=== PATIENT | female | born 1970 | race Caucasian/White ===

== ENCOUNTER → 2017-12-01 | Outpatient (CLI) | payer MEDICARE, MEDICAID ==
[~2017-12-01] MED LIST: ALPR1T PO; ARIP15TA PO; ASPI-84 PO; ATEN25TA PO; CITA-105 PO; CPR250T PO; FERR325C PO; FLAX1CAP2 PO; FOLI0.8T PO; HYDR-707 PO; HYDR25CA5 PO; LISI20TA PO; LOVA40TA2 PO; MECL50TA PO; METF-141 PO; SITA1TAB6 PO; THIO50TA PO; TRAZ150T42 PO; TRIA1CAP4 PO; VENL150C PO; ZYDIS PO
--- NOTE | 2017-12-02 11:59 | Diagnostic Imaging Report ---
PROCEDURE: Digital mammogram. INDICATION: Bilateral screening. COMPARISON: The study was compared to prior exams of 12/09/2015 and 10/10/2014. At this time there are no current complaints. The current study was also evaluated with a Computer Aided Detection (CAD) system. FINDINGS: There are scattered fibroglandular densities in both breasts which could obscure a lesion. Overall, there does not appear to have been any significant change when compared to the prior exam. No primary or secondary sign of malignancy is noted. IMPRESSION: There is no radiographic evidence for malignancy. ACR BI-RADS Category 1: Negative. Result letter will be mailed to the patient. Note: At least 10% of breast cancer is not imaged by mammography. Dictated on workstation # [id number]
== END ==
LOC: RAD 09:52
PROVIDERS: ATTEND Nurse Practitioner Community Health
DX: Z12.31 Encounter for screening mammogram for malignant neoplasm of breast (principal)
CPT/HCPCS: 77067

== ENCOUNTER → 2019-01-02 | Outpatient (CLI) | payer MEDICARE, MEDICAID ==
--- NOTE | 2019-01-02 14:02 | Diagnostic Imaging Report ---
INDICATION: Screening. COMPARISON: 12/01/2017 and 12/09/2015. TECHNIQUE: 2D and 3D bilateral screening mammography was performed with CAD. FINDINGS: Both breasts remain heterogeneously dense, limiting the sensitivity of mammography. No mass or malignant appearing microcalcifications are seen. There are benign calcifications bilaterally. The axillae are unremarkable. IMPRESSION: No mammographic features suspicious for malignancy are identified. ACR BI-RADS Category 2: Benign findings. Result letter will be mailed to the patient. Note: At least 10% of breast cancer is not imaged by mammography. Dictated by: Dictated on workstation # [id number]
== END ==
LOC: RAD 08:22
PROVIDERS: ATTEND Nurse Practitioner Community Health
DX: Z12.31 Encounter for screening mammogram for malignant neoplasm of breast (principal)
CPT/HCPCS: 77067

== ENCOUNTER → 2020-07-17 | Outpatient (CLI) | payer MEDICAID, MEDICARE ==
--- NOTE | 2020-07-17 16:34 | Diagnostic Imaging Report ---
INDICATION: Routine screening. COMPARISON is made with prior mammograms from 01/02/2019 and 12/09/2015. 2-D and 3-D bilateral screening mammography was performed with CAD. Scattered fibroglandular densities are identified bilaterally. There are benign calcifications in both breasts. No mass or malignant appearing microcalcifications are seen. Axillae are unremarkable. IMPRESSION: BI-RADS Category 2 No mammographic features suspicious for malignancy are identified. Dictated by: Dictated on workstation # [id number]
== END ==
LOC: RAD 10:45
PROVIDERS: ATTEND Nurse Practitioner Community Health
DX: Z12.31 Encounter for screening mammogram for malignant neoplasm of breast (principal)
CPT/HCPCS: 77063; 77067

== ENCOUNTER 2020-10-17 15:52 | Emergency (ER) | payer MEDICARE, MEDICAID ==
[~2020-10-17] VITALS: Ht 170 cm; Wt 107.0 kg
--- NOTE | 2020-10-17 16:06 | ED Lower Extremity ---
General Chief Complaint: Lower Extremity Stated Complaint: R LEG PAIN Source: patient Exam Limitations: no limitations History of Present Illness Date Seen by Provider: Oct 17, 2020 Time Seen by Provider: 16:06 Initial Comments To ER with right leg pain that extends from the hip all the way down to the feet. Is worsened by movement. At rest the pain is minimal. No fevers or chills no known injury. Pain is been present for 1 month. She states the only area that is not painful is her knee. When she moves her foot she has pain in the hayes. When she moves her knee she has pain in the thigh. Onset: other Severity: moderate Pain/Injury Location: right leg Method of Injury: unknown Modifying Factors: Worse With Movement Allergies and Home Medications Allergies Coded Allergies: No Known Drug Allergies (Unverified , 04/24/10) Home Medications Aripiprazole 15 Mg Tab, 20 MG PO DAILY, (Reported) Aspirin 81 Mg Tablet.dr, 1 PO DAILY, (Reported) Atenolol 25 Mg Tablet, 1 PO BID, (Reported) Ferrous Sulfate 325 ( 65 )Mg Capsule.sa, 1 PO DAILY, (Reported) Lisinopril 20 Mg Tablet, 1 PO DAILY, (Reported) Lovastatin 40 Mg Tablet, 40 MG PO DAILY, (Reported) Metformin Hcl 500 Mg Tab.sr.24h, 1 PO BID, (Reported) Trazodone Hcl 150 Mg Tablet, 300 MG PO DAILY, (Reported) Venlafaxine Hcl 150 Mg Cap.sr.24h, 150 MG PO DAILY, (Reported) [Zydis] , 5 MG PO NEEDED, (Reported) Patient Home Medication List Home Medication List Reviewed: Yes Review of Systems Constitutional: see HPI; No chills, No fever EENTM: see HPI Respiratory: no symptoms reported Cardiovascular: no symptoms reported Genitourinary: no symptoms reported Musculoskeletal: see HPI; No back pain Skin: no symptoms reported Psychiatric/Neurological: No Symptoms Reported Past Bajbjbu-Erycqv-Twjiya Hx Immunizations Up To Date Date of Pneumonia Vaccine: Apr 29, 2009 Date of Influenza Vaccine: Apr 29, 2012 Physical Exam Vital Signs Vital Signs - First Documented 10/17/20 16:00 Temp 36.2 Pulse 79 Resp 16 B/P (MAP) 159/113 (128) Pulse Ox 99 O2 Delivery Room Air Capillary Refill : Height, Weight, BMI Height: '" Weight: lbs. oz. kg; BMI Method:Stated General Appearance: WD/WN, no apparent distress Neck: non-tender, full range of motion Respiratory: no respiratory distress, no accessory muscle use Hips: bilateral hip non-tender, bilateral hip normal inspection, bilateral hip normal range of motion Legs: bilateral leg non-tender, bilateral leg normal inspection, bilateral leg normal range of motion Knees: bilateral knee non-tender, bilateral knee normal inspection, bilateral knee normal range of motion Ankles: bilateral ankle non-tender, bilateral ankle normal inspection, bilateral ankle normal range of motion Feet: bilateral foot non-tender, bilateral foot normal inspection, bilateral foot normal range of motion Neurologic/Psychiatric: alert, normal mood/affect, oriented x 3 Skin: normal color, warm/dry Progress/Results/Core Measures Results/Orders Lab Results Laboratory Tests Test 10/17/20 16:32 Range/Units White Blood Count 8.0 4.3-11.0 10^3/uL Red Blood Count 4.43 3.80-5.11 10^6/uL Hemoglobin 11.7 11.5-16.0 g/dL Hematocrit 36 35-52 % Mean Corpuscular Volume 80 80-99 fL Mean Corpuscular Hemoglobin 26 25-34 pg Mean Corpuscular Hemoglobin Concent 33 32-36 g/dL Red Cell Distribution Width 14.4 10.0-14.5 % Platelet Count 375 130-400 10^3/uL Mean Platelet Volume 9.9 9.0-12.2 fL Immature Granulocyte % (Auto) 0 % Neutrophils (%) (Auto) 57 42-75 % Lymphocytes (%) (Auto) 32 12-44 % Monocytes (%) (Auto) 9 0-12 % Eosinophils (%) (Auto) 1 0-10 % Basophils (%) (Auto) 1 0-10 % Neutrophils # (Auto) 4.5 1.8-7.8 10^3/uL Lymphocytes # (Auto) 2.6 1.0-4.0 10^3/uL Monocytes # (Auto) 0.7 0.0-1.0 10^3/uL Eosinophils # (Auto) 0.1 0.0-0.3 10^3/uL Basophils # (Auto) 0.1 0.0-0.1 10^3/uL Immature Granulocyte # (Auto) 0.0 0.0-0.1 10^3/uL Sodium Level 127 L 135-145 MMOL/L Potassium Level 4.3 3.6-5.0 MMOL/L Chloride Level 95 L 98-107 MMOL/L Carbon Dioxide Level 23 21-32 MMOL/L Anion Gap 9 5-14 MMOL/L Glucose Level 113 H 70-105 MG/DL Calcium Level 8.6 8.5-10.1 MG/DL My Orders Orders - VAUGHN KEMP APRN Cbc With Automated Diff (10/17/20 16:00) Hs C Reactive Protein (10/17/20 16:00) Basic Metabolic Panel (10/17/20 16:00) Us Venous Lower Ext Rt (10/17/20 16:00) Femur, Right, 2 Views (10/17/20 16:07) Tibia/Fibula, Right, 2 Views (10/17/20 16:38) Hydrocodone/Apap 5/325 Tablet (Lortab 5 (10/17/20 17:00) Vital Signs/I&O 10/17/20 16:00 Temp 36.2 Pulse 79 Resp 16 B/P (MAP) 159/113 (128) Pulse Ox 99 O2 Delivery Room Air Diagnostic Imaging Diagonstic Imaging: Xray Comments NAME: KANDY MENDEZ [facility] REC#: [id number] PT STATUS: REG ER : 1970 PHYSICIAN: VAUGHN KEMP APRN ADMIT DATE: 10/17/20/ER Signed Date of Exam:10/17/20 US VENOUS LOWER EXT RT INDICATION: Right leg pain. Right leg venous Doppler study was performed in the routine fashion with color flow Doppler and waveform analysis. FINDINGS: The right common femoral vein, superficial femoral vein, popliteal vein and visualized portion of the tibial veins show normal compressibility and venous flow patterns. There is normal augmentation. IMPRESSION: No evidence of deep vein thrombosis of the major veins of the right leg. Dictated by: Dictated on workstation # [id number] Dict: 10/17/20 1634 Trans: 10/17/20 1634 RS [id number] Interpreted by: ANGIE LAO MD Electronically signed by: ANGIE LAO MD 10/17/20 1634 Departure Communication (Admissions) She has a history of gastric bypass so NSAIDs or steroids would be ill advised. She will need follow-up with primary care, she states that she sees [facility]. I discussed with her the need to obtain further evaluation which may include MRI of the lumbar spine or hip. Impression Primary Impression: Nonspecific right leg pain Disposition: HOME, SELF-CARE Condition: Stable Departure-Patient Inst. Decision time for Depature: 17:04 Referrals: [facility] (PCP) Primary Care Physician RALPH RIZO (Family) Primary Care Physician Patient Instructions: NO INSTRUCTIONS GIVEN Add. Discharge Instructions: 1. Call [facility] to follow-up as soon as they can see you. Pain medication as directed. Return to ER for any worsening. All discharge instructions reviewed with patient and/or family. Voiced understanding. Scripts Hydrocodone/Acetaminophen (Hydrocodone-Acetamin 5-325 mg) 1 Each Tablet 1 TAB PO Q4H PRN for PAIN-MODERATE (5-7), #10 TAB Prov: VAUGHN KEMP APRN 10/17/20 VAUGHN KEMP APRN Oct 17, 2020 16:06
--- NOTE | 2020-10-17 16:36 | Diagnostic Imaging Report ---
INDICATION: Right leg pain. Right leg venous Doppler study was performed in the routine fashion with color flow Doppler and waveform analysis. FINDINGS: The right common femoral vein, superficial femoral vein, popliteal vein and visualized portion of the tibial veins show normal compressibility and venous flow patterns. There is normal augmentation. IMPRESSION: No evidence of deep vein thrombosis of the major veins of the right leg. Dictated by: Dictated on workstation # [id number]
[2020-10-17 16:43] LABS: BASOPHILS # (AUTO) 0.1 10^3/uL (0.0-0.1); BASOPHILS % (AUTO) 1 % (0-10); EOSINOPHILS # (AUTO) 0.1 10^3/uL (0.0-0.3); EOSINOPHILS % (AUTO) 1 % (0-10); HEMATOCRIT 36 % (35-52); HEMOGLOBIN 11.7 g/dL (11.5-16.0); LYMPHOCYTES # (AUTO) 2.6 10^3/uL (1.0-4.0); LYMPHOCYTES % (AUTO) 32 % (12-44); MEAN CORPUSCULAR HEMOGLOBIN 26 pg (25-34); MEAN CORPUSCULAR HGB CONC 33 g/dL (32-36); MEAN CORPUSCULAR VOLUME 80 fL (80-99); MEAN PLATELET VOLUME 9.9 fL (9.0-12.2); MONOCYTES # (AUTO) 0.7 10^3/uL (0.0-1.0); MONOCYTES % (AUTO) 9 % (0-12); NEUTROPHILS # (AUTO) 4.5 10^3/uL (1.8-7.8); NEUTROPHILS % (AUTO) 57 % (42-75); PLATELET COUNT 375 10^3/uL (130-400)
[2020-10-17 16:55] LABS: CHLORIDE 95 MMOL/L (98-107); POTASSIUM 4.3 MMOL/L (3.6-5.0); SODIUM 127 MMOL/L (135-145)
[2020-10-17 16:57] LABS: CALCIUM 8.6 MG/DL (8.5-10.1); GLUCOSE 113 MG/DL (70-105)
[2020-10-17 16:59] LABS: CARBON DIOXIDE 23 MMOL/L (21-32)
[2020-10-17] MEDS ORDERED: HYDROcodone/APAP 5 MG/325 MG (LORTAB) TAB PO ONE (17:00)
[2020-10-17 17:01] LABS: CREATININE SERUM 0.79 MG/DL (0.60-1.30); GFR ESTIMATED > 60
--- NOTE | 2020-10-17 17:01 | Diagnostic Imaging Report ---
FEMUR, RIGHT, 2 VIEWS Technique: 2 views of right femur Indication: Right thigh pain Comparison: None available. Findings: No fracture concerning focal osseous lesion. No periosteal reaction. Mild to moderate degenerative arthritis in the knee. No knee joint effusion. Impression: No acute osseous normality in the right femur. Dictated by: Dictated on workstation # [id number]
--- NOTE | 2020-10-17 17:01 | Diagnostic Imaging Report ---
INDICATION: Pain. EXAMINATION: Tibia and fibula. FINDINGS: There are arthritic changes to the knee and ankle. No fracture or dislocation, however. IMPRESSION: No acute appearing abnormality. Dictated on workstation # [id number]
[2020-10-17 17:02] LABS: BUN/CREATININE RATIO 9
[2020-10-17] MEDS ORDERED: ACHD5005 PO (17:06)
[2020-10-17 17:11] VITALS: BP 152/85
== END 2020-10-17 17:11 | disposition home or self-care (01) ==
LOC: EDUNIT# 15:52 → ER 15:53
DX: M79.651 Pain in right thigh (principal); Z79.82 Long term (current) use of aspirin
CPT/HCPCS: 36415; 73552; 73590; 80048; 85025; 86141

== ENCOUNTER → 2021-01-01 | Outpatient (CLI) | payer MEDICARE, MEDICAID ==
[~2021-01-01] MED LIST changes: +ACHD5005 PO
--- NOTE | 2021-01-01 19:39 | Diagnostic Imaging Report ---
PROCEDURE: MRI lumbar spine. TECHNIQUE: Multiplanar, multisequence MRI of the lumbar spine was performed without contrast. DATE: January 01, 2021. COMPARISON: None. INDICATION: 50-year-old female, chronic low back pain. Right hip pain. FINDINGS: The alignment of the lumbar spine is unremarkable. There is no evidence of a diffuse marrow replacing or infiltrating process. There is no focal concerning bone lesion. There is no compression deformity. There is mild Modic endplate degenerative related changes adjacent to the L3-L4 disc space. The disc heights are fairly well preserved. The visualized cord and conus medullaris is unremarkable and terminates at the L1 level. There is a subcentimeter T2 hyperintense right renal lesion too small to characterize. L1-L2: There is no disc bulge. The facet joints and ligamentum flavum are unremarkable. There is no foraminal narrowing. There is no spinal canal stenosis. L2-L3: There is no disc bulge. The facet joints and ligamentum flavum are unremarkable. There is no foraminal narrowing. There is no spinal canal stenosis. L3-L4: There is no disc bulge. The facet joints and ligamentum flavum are unremarkable. There is no foraminal narrowing. There is no spinal canal stenosis. L4-L5: There is no disc bulge. There are mild bilateral facet degenerative changes without ligamentum flavum hypertrophy. There is no foraminal narrowing. There is no spinal canal stenosis. L5-S1: There is no disc bulge. The facet joints and ligamentum flavum are unremarkable. There is no foraminal narrowing. There is no spinal canal stenosis. IMPRESSION: Very mild disc and facet degenerative changes of the lumbar spine without foraminal or spinal stenosis. Dictated by: Dictated on workstation # [id number]
--- NOTE | 2021-01-01 20:00 | Diagnostic Imaging Report ---
EXAMINATION: Magnetic resonance imaging of the pelvis and right hip without contrast DATE: January 01, 2021. COMPARISON: Right femur radiographs October 17, 2020. INDICATION: 50-year-old female, chronic low back and right hip pain. TECHNIQUE: Magnetic Resonance Imaging sequences were performed of the pelvis and right hip without contrast. TENDONS AND MUSCLES: The gluteus radha muscles and their origins and insertions are intact bilaterally. The gluteus minimus and medius tendons are intact. There is abnormal edema in the very lower aspect of the right gluteus medius muscle. Both common hamstring attachments on the ischial tuberosities are intact and the extensor muscles of the thigh are intact. The visualized portions of the flexors and adductor muscles of the thigh and their attachments on the pelvis and hips are intact. Both iliopsoas and iliacus muscles are intact. The bilateral iliopsoas tendons are intact. HIPS AND SACROILIAC JOINTS: The contours of the femoral heads and acetabuli are smooth and symmetric. There is no fluid-filled labral tear or paralabral cyst. The hip joint spaces appear well-preserved. There is no hip joint effusion. The sacroiliac joints are unremarkable. LUMBAR SPINE: There is moderate to severe disc height loss at L5-S1. There is mild disc height loss at L3-L4. There is otherwise limited assessment of the lumbar spine. BONE: The bones all have normal configuration. The bone marrow signal is within normal limits. Specifically, negative for fracture, osteomyelitis, osteonecrosis or marrow replacing process. BURSAE AND SOFT TISSUES: The bursae and soft tissues surrounding the pelvis and hips are within normal limits. IMPRESSION: 1. Edema in the lower aspect of the right gluteus medius muscle most likely relating to a low-grade muscle strain or contusion. 2. Additional intramuscular signal is unremarkable. 3. Intact tendons. 4. Unremarkable appearance of the hip joints. 5. No acute fracture, bone contusion or evidence of osteonecrosis. 6. Degenerative changes of the lower lumbar spine. Dictated by: Dictated on workstation # [id number]
== END ==
LOC: RAD 14:45
PROVIDERS: ATTEND Nurse Practitioner Family
DX: M51.36 Other intervertebral disc degeneration, lumbar region (principal); M47.816 Spondylosis without myelopathy or radiculopathy, lumbar region
CPT/HCPCS: 72148; 73721

== ENCOUNTER → 2021-08-12 | Outpatient (CLI) | payer MEDICARE, MEDICAID ==
--- NOTE | 2021-08-12 13:16 | Diagnostic Imaging Report ---
TECHNIQUE: Live grayscale ultrasound was performed of the posterior soft tissues of the neck. REASON FOR EXAM: Lump in the posterior neck. COMPARISON: None. FINDINGS: No evidence of mass or fluid collection is seen in the area of palpable lump. Normal muscle tissue is noted in this area. IMPRESSION: No sonographic abnormalities in the area of palpable lump in the posterior neck. No focal mass or fluid collection. If indicated, further evaluation with CT neck with contrast may be considered.. Dictated by: Dictated on workstation # [id number]
--- NOTE | 2021-08-12 14:04 | Diagnostic Imaging Report ---
Indication: Routine screening Comparison is made prior mammogram from 07/17/2020 and 01/02/2019. 2-D and 3-D bilateral screening mammography was performed with CAD. Scattered fibroglandular densities are identified bilaterally. Scattered benign calcifications are noted bilaterally. No mass or malignant-appearing microcalcifications are seen. Axillae are unremarkable. IMPRESSION: BI-RADS Category 2 No mammographic features suspicious for malignancy are identified. ACR BI-RADS Category 2: Benign findings. Result letter will be mailed to the patient. Note: At least 10% of breast cancer is not imaged by mammography. Dictated by: Dictated on workstation # [id number]
== END ==
LOC: RAD 11:30
PROVIDERS: ATTEND Nurse Practitioner Family
DX: Z12.31 Encounter for screening mammogram for malignant neoplasm of breast (principal); R22.1 Localized swelling, mass and lump, neck
CPT/HCPCS: 76536; 77063; 77067

== ENCOUNTER → 2021-09-08 | Outpatient (CLI) | payer MEDICARE, MEDICAID ==
[~2021-09-08] MED LIST changes: +CATHETER FLUSH 10 ML SYR IV PRN; +HOLD METFORMIN - RECEIVED CONTRAST 20 ML VIAL IV SCH; +IOHEXOL 350 MG/ML 100 ML (OMNIPAQUE 350) VIAL IV ONE; +NS 100 ML (IVPB) BAG IV ONE
[2021-09-08 10:22] LABS: ALBUMIN 3.9 GM/DL (3.2-4.5); BILIRUBIN,TOTAL 0.4 MG/DL (0.1-1.0); CALCIUM 9.2 MG/DL (8.5-10.1); CREATININE SERUM 0.86 MG/DL (0.60-1.30); POTASSIUM 4.2 MMOL/L (3.6-5.0); TOTAL PROTEIN 6.7 GM/DL (6.4-8.2)
--- NOTE | 2021-09-08 11:04 | Diagnostic Imaging Report ---
PROCEDURE: CT neck soft tissue with contrast. TECHNIQUE: Multiple contiguous axial images were obtained through the neck after the administration of contrast. Auto Exposure Controls were utilized during the CT exam to meet ALARA standards for radiation dose reduction. INDICATION: Mass in the posterior neck. COMPARISON: None. Findings: The posterior nasopharynx and oropharynx demonstrate appropriate symmetry. There is no displacement of the parapharyngeal fat planes. There is no abnormal process evident within the prevertebral or retropharyngeal space. There is no evidence of abnormal thickening of the epiglottis or aryepiglottic folds. The vocal folds appear symmetric. The parotid and submandibular glands are unremarkable. Nodule seen in the right lobe of thyroid measuring 0.5 cm. Scattered nonenlarged lymph nodes are seen in the neck. A lymph node is seen in the soft tissues overlying the left suboccipital region measuring 0.4 cm. No focal inflammatory changes are demonstrated. No soft tissue mass or fluid collection demonstrated. The vascular structures the neck demonstrate no evidence of high-grade stenosis on this nondedicated exam. The visualized lung apices are clear. The visualized intracranial contents demonstrate no evidence of pathologic intracranial enhancement or intracranial mass effect. Visualized orbital contents are unremarkable. The visualized paranasal sinuses are clear. The mastoids and middle ears are clear. No acute osseous abnormality in the cervical spine. Impression: 1. No focal soft tissue mass or fluid collection is seen in the neck. 2. Scattered lymph nodes are seen in the neck which do not meet significance based on size criteria. A lymph node is seen in the left suboccipital region measuring 0.4 cm in short axis which may relate to the history of palpable abnormality in the posterior neck. 3. No mass or fluid collection in the aerodigestive tract. No evidence of airway compromise. Dictated by: Dictated on workstation # [id number]
== END ==
LOC: RAD 10:15
PROVIDERS: ATTEND Nurse Practitioner Family
DX: R22.1 Localized swelling, mass and lump, neck (principal)
CPT/HCPCS: 36415; 70491; 80053

== ENCOUNTER 2022-06-30 05:34 | Outpatient (CLI) | payer MEDICARE, MEDICAID ==
[~2022-06-30] VITALS: Ht 170.2 cm; Wt 103.0 kg
[~2022-06-30 05:34] MED LIST changes: -CATHETER FLUSH 10 ML SYR IV PRN; -HOLD METFORMIN - RECEIVED CONTRAST 20 ML VIAL IV SCH; -IOHEXOL 350 MG/ML 100 ML (OMNIPAQUE 350) VIAL IV ONE; -NS 100 ML (IVPB) BAG IV ONE
[2022-07-07] MEDS ORDERED: MODA200T39 PO (09:06)
[2022-07-07] MEDS ORDERED: DULO60CA59 PO (09:06)
[2022-07-07] MEDS ORDERED: OLN5T PO (09:06)
[2022-07-07] MEDS ORDERED: NF-VITD400 PO (09:06)
[2022-07-07] MEDS ORDERED: BUSP30TA2 PO (09:06)
[2022-07-07] MEDS ORDERED: PROP10TA8 PO (09:06)
[2022-07-07] MEDS ORDERED: PANT40TA52 PO (09:06)
[2022-07-07] MEDS ORDERED: BACI1TAB3 PO (09:06)
[2022-07-07] MEDS ORDERED: CALC600T91 PO (09:06)
[2022-07-07] MEDS ORDERED: SIMV10TA26 PO (09:06)
[2022-07-07] MEDS ORDERED: GABA-490 PO (09:06)
[2022-07-07] MEDS ORDERED: DULA3PEN SQ (09:06)
[2022-07-07] MEDS ORDERED: LISI10TA25 PO (09:06)
[2022-07-07] MEDS ORDERED: MULT-593 PO (09:06)
== END 2022-07-07 09:09 | disposition home or self-care (01) ==
LOC: PREOP 05:34
PROVIDERS: ATTEND Surgery
DX: Z01.818 Encounter for other preprocedural examination (principal)

== ENCOUNTER 2022-07-13 08:57 | Day surgery (SDC) | payer MEDICARE, MEDICAID ==
[~2022-07-13] VITALS: Ht 170 cm; Wt 103.0 kg
[~2022-07-13 08:57] MED LIST changes: +BACI1TAB3 PO; +BUSP30TA2 PO; +CALC600T91 PO; +DULA3PEN SQ; +DULO60CA59 PO; +GABA-490 PO; +LISI10TA25 PO; +MODA200T39 PO; +MULT-593 PO; +NF-VITD400 PO; +OLN5T PO; +PANT40TA52 PO; +PROP10TA8 PO; +SIMV10TA26 PO
[2022-07-13] MEDS ORDERED: LACTATED RINGERS 1,000 ML IV STA (09:01)
[2022-07-13] MEDS ORDERED: LACTATED RINGERS 1,000 ML IV ONE (09:14)
[2022-07-13] MEDS ORDERED: HURRICAINE EXT TUBE (BENZOCAINE) XX PRN (09:15)
[2022-07-13] MEDS ORDERED: HURRICAINE EXT TUBE (BENZOCAINE) ONE (09:15)
[2022-07-13 09:20] VITALS: BP 128/83
[2022-07-13] MEDS ORDERED: MIDAZOLAM 2 MG/2 ML (VERSED) VIAL ONE (10:16)
[2022-07-13] MEDS ORDERED: PROPOFOL INJECTION 50 ML IV ONE (10:16)
[2022-07-13] MEDS ORDERED: proPOfol 200 MG/20 ML (DIPRIVAN) VIAL IV ONE (10:48)
[2022-07-13 11:00] VITALS: BP 133/83
--- NOTE | 2022-07-13 11:01 | Discharge Inst-Simple/Standard ---
Discharge Inst-Standard Patient Instructions/Follow Up Plan of Care/Instructions/FU: Follow up in [address] Izaguirre Activity as Tolerated: Yes Discharge Diet: No Restrictions, Regular Diet, Other Diet (high fiber) ARLEEN IZAGUIRRE DO Jul 13, 2022 11:01
[2022-07-13 11:05] VITALS: BP 139/84
[2022-07-13 11:25] VITALS: BP 145/95
--- NOTE | 2022-07-13 11:34 | Anesthesia-General Post-Op ---
MAC Patient Condition Mental Status/LOC: Same as Preop Cardiovascular: Satisfactory Nausea/Vomiting: Absent Respiratory: Satisfactory Pain: Controlled Complications: Absent Post Op Complications Complications None Follow Up Care/Instructions Patient Instructions None needed. Anesthesiology Discharge Order Discharge Order Patient is doing well, no complaints, stable vital signs, no apparent adverse anesthesia problems. No complications reported per nursing. LETYT OWENS CRNA Jul 13, 2022 11:33
[2022-07-13 11:43] VITALS: BP 145/95
--- NOTE | 2022-07-13 17:26 | OPERATIVE REPORT ---
DATE OF SERVICE: 07/13/2022 PREOPERATIVE DIAGNOSES: GERD, positive Cologuard. POSTOPERATIVE DIAGNOSES: Gastrojejunal anastomosis inflammation, small hiatal hernia, diverticulosis. PROCEDURE: Esophagogastrojejunoscopy with biopsies, colonoscopy. SURGEON: Dr. Izaguirre. ANESTHESIA: Per [employer]BR[employer] DIGITIZER. ESTIMATED BLOOD LOSS: None. COMPLICATIONS: None. INDICATIONS: The patient is a 51-year-old female with positive Cologuard and GERD symptoms. She understands risks and benefits of procedure and wishes to proceed. Consent was signed in the chart. DESCRIPTION OF PROCEDURE: The patient was taken to the endoscopy suite, placed in the left lateral recumbent position. Timeout was performed. Scope was inserted in the mouth, down the stomach into the stomach and into the jejunum without any difficulty. No polyps, mass or ulceration of the jejunum. At the jejunal gastroanastomosis, there is some inflammation, biopsy of this area was obtained. Scope was then used to inspect the gastric pouch. No other abnormalities found except for a small hiatal hernia. Scope was then slowly retracted back to the distal esophagus. Biopsy of GE junction was obtained. No polyps, masses or ulcerations. Scope was slowly retracted back until completely removed. Digital rectal exam was performed. No palpable polyps, masses or ulcerations. Scope was inserted into the rectum, advanced all the way to the cecum with minimal difficulty. Prep was adequate. Scope was then slowly retracted back. No polyps, mass or ulceration in the cecum, ascending, transverse, descending and sigmoid colon. A minimal amount of diverticulosis was present throughout colon. Once in the rectum, scope was retroflexed, noting no other pathology. Except for some slight hemorrhoidal disease. Scope was returned to its normal position, slowly withdrawn until completely removed. The patient tolerated the procedure well without any complications. She was taken to recovery room in stable condition. RECOMMENDATIONS: The patient will need a repeat colonoscopy in five years. Any issues before that be seen at that time. PLAN: The patient will follow up in two weeks to discuss pathology results. Job ID: [id number] DocumentID: [id number] Dictated Date: 07/13/2022 10:59:41 Back Winder Date: 07/13/2022 17:24:00 Dictated By: ARLEEN IZAGUIRRE DO
== END 2022-07-13 11:43 | disposition home or self-care (01) ==
LOC: ENDO 08:57
PROVIDERS: ATTEND Surgery
DX: K57.30 Diverticulosis of large intestine without perforation or abscess without bleeding (principal); K44.9 Diaphragmatic hernia without obstruction or gangrene; K64.9 Unspecified hemorrhoids; K21.9 Gastro-esophageal reflux disease without esophagitis; K91.89 Other postprocedural complications and disorders of digestive system; Y83.2 Surgical operation with anastomosis, bypass or graft as the cause of abnormal reaction of the patient, or of later complication, without mention of misadventure at the time of the procedure
CPT/HCPCS: 88305

== ENCOUNTER → 2023-02-01 | Outpatient (CLI) | payer MEDICARE, MEDICAID ==
[~2023-02-01] MED LIST changes: +GADOTERATE 0.5 MMOL/ML (CLARISCAN) 20 ML VIAL IV ONE
--- NOTE | 2023-02-01 15:39 | Diagnostic Imaging Report ---
PROCEDURE: MR imaging of the brain with and without contrast. TECHNIQUE: Multiplanar, multisequence MR imaging of the brain was performed with and without contrast. INDICATION: Headaches with dizziness. Paresthesias COMPARISON: None FINDINGS: The ventricles and the cortical sulci are age appropriate. There is no midline shift or mass effect identified. There is no acute infarction. No intraparenchymal or extra-axial hemorrhage or fluid collection is identified. No other focal parenchymal abnormality is seen. There is no abnormal enhancement seen after the administration of gadolinium. No focal mass is present. The midline craniocervical anatomy is unremarkable. The major expected intracranial flow voids are seen. There are no focal calvarial lesions. Visualized paranasal sinuses are clear. The mastoid air cells are unremarkable. IMPRESSION: 1. No acute intracranial abnormalities. No acute infarction, hemorrhage or focal intra-axial mass. Dictated by: Dictated on workstation # [id number]
== END ==
LOC: RAD 12:50
PROVIDERS: ATTEND Nurse Practitioner Family
DX: G44.52 New daily persistent headache (NDPH) (principal); R42 Dizziness and giddiness; R29.6 Repeated falls; R20.2 Paresthesia of skin
CPT/HCPCS: 70553

== ENCOUNTER 2023-06-09 15:45 | Observation (INO) | payer MEDICARE, MEDICAID ==
[~2023-06-09] VITALS: Ht 170.1 cm; Wt 110.8 kg
[~2023-06-09 15:45] MED LIST changes: -GABA-490 PO; +GABA-491 PO; -GADOTERATE 0.5 MMOL/ML (CLARISCAN) 20 ML VIAL IV ONE
[2023-06-09] MEDS ORDERED: amLODIPine 10 MG TABLET PO ONE (16:00)
[2023-06-09] MEDS ORDERED: cloNIDine 0.1 MG TABLET PO ONE (16:00)
[2023-06-09 16:14] LABS: BASOPHILS # (AUTO) 0.1 10^3/uL (0.0-0.1); BASOPHILS % (AUTO) 1 % (0-10); EOSINOPHILS # (AUTO) 0.1 10^3/uL (0.0-0.3); EOSINOPHILS % (AUTO) 1 % (0-10); HEMATOCRIT 42 % (35-52); LYMPHOCYTES # (AUTO) 3.6 10^3/uL (1.0-4.0); LYMPHOCYTES % (AUTO) 31 % (12-44); MEAN CORPUSCULAR HEMOGLOBIN 28 pg (25-34); MEAN CORPUSCULAR HGB CONC 33 g/dL (32-36); MEAN CORPUSCULAR VOLUME 85 fL (80-99); MEAN PLATELET VOLUME 10.2 fL (9.0-12.2); MONOCYTES # (AUTO) 1.2 10^3/uL (0.0-1.0); MONOCYTES % (AUTO) 10 % (0-12); NEUTROPHILS # (AUTO) 6.5 10^3/uL (1.8-7.8); NEUTROPHILS % (AUTO) 56 % (42-75); PLATELET COUNT 362 10^3/uL (130-400); WHITE BLOOD COUNT 11.5 10^3/uL (4.3-11.0)
[2023-06-09 16:17] LABS: ALBUMIN 4.4 GM/DL (3.2-4.5); CHLORIDE 94 MMOL/L (98-107); POTASSIUM 3.9 MMOL/L (3.6-5.0)
[2023-06-09 16:18] LABS: SODIUM 127 MMOL/L (135-145)
[2023-06-09 16:19] LABS: CALCIUM 9.4 MG/DL (8.5-10.1)
[2023-06-09 16:20] LABS: GLUCOSE 126 MG/DL (70-105); TOTAL PROTEIN 7.7 GM/DL (6.4-8.2)
[2023-06-09 16:21] LABS: CARBON DIOXIDE 20 MMOL/L (21-32)
[2023-06-09 16:22] LABS: BILIRUBIN,TOTAL 0.7 MG/DL (0.1-1.0)
[2023-06-09 16:23] LABS: ALKALINE PHOSPHATASE 114 U/L (40-136); CREATININE SERUM 0.81 MG/DL (0.60-1.30); GFR ESTIMATED 86
[2023-06-09 16:24] LABS: BUN/CREATININE RATIO 7
[2023-06-09 16:26] LABS: ALANINE AMINOTRANSFERASE 21 U/L (0-55)
--- NOTE | 2023-06-09 16:31 | ED General ---
General Chief Complaint: Cardiac/General Problems Stated Complaint: HIGH BP, HEADACHE Nursing Triage Note: PT AMBULATE TO ROOM 05 WITHOUT DIFFICULTY WITH C/O "BLOOD PRESSURE ISSUES". PT STATES PCP DOUBLED HER HYPERTENSION MEDICATION LAST WEEK. PT REPORTS BEING SEEN AT [facility] TODAY. PT REPORTS PCP TOLD PT TO COME TO ED. PT REPORTS HEADACHE. Source of Information: Patient Exam Limitations: No Limitations History of Present Illness Date Seen by Provider: Jun 09, 2023 Time Seen by Provider: 15:58 Initial Comments Here with report of blood pressure 195/112 mental health. She apparently had similar readings twice. She has had uncontrolled blood pressure without chest pain or breathing problems. She does report headache. She apparently was seen by Dr. ZHOU recently and had her losartan doubled. That was due to uncontrolled hypertension at the time as well. Does have family history of hypertension and cardiac disease. Denies fever or chills. Reports taking medications as directed. Timing/Duration: Getting Worse, Other (3 weeks) Severity: Moderate Associated Systoms: No Chest Pain, No Diaphoresis; Headaches; No N ausea/Vomiting, No Shortness of Air, No Weakness Allergies and Home Medications Allergies Coded Allergies: NSAIDS (Non-Steroidal Anti-Inflamma (Verified Allergy, Unknown, 06/09/23) Patient Home Medication List Home Medication List Reviewed: Yes Bacillus Coagulans (Probiotic) 250 Million Cell Tab.chew, 1 EACH PO DAILY, (Reported) Entered as Reported by: LUCILLE HANEY on 07/07/22905 Buspirone HCl (Buspirone HCl) 30 Mg Tablet, 30 MG PO BID, (Reported) Entered as Reported by: LUCILLE HANEY on 07/07/22905 Calcium Carbonate (Calcium) 600 Mg Calcium (1500 Mg) Tablet, 600 MG PO DAILY, (Reported) Entered as Reported by: LUCILLE HANEY on 07/07/22905 Dulaglutide (Trulicity) 3 Mg/0.5 Ml Pen.injctr, 3 MG SQ WEEK, (Reported) Entered as Reported by: LUCILLE HANEY on 07/07/22905 Duloxetine HCl (Duloxetine HCl) 60 Mg Capsule.dr, 60 MG PO DAILY, (Reported) Entered as Reported by: LUCILLE HANEY on 07/07/22905 Ferrous Sulfate (Iron) 325 ( 65 )Mg Capsule.sa, 1 PO DAILY, (Reported) Entered as Reported by: FRANKIE MENDEZ on 11/20/10 1448 Gabapentin (Gabapentin) 400 Mg Capsule, 300 MG PO TID, (Reported) Entered as Reported by: LUCILLE HANEY on 07/07/22905 Lisinopril (Lisinopril) 10 Mg Tablet, 10 MG PO DAILY, (Reported) Entered as Reported by: LUCILLE HANEY on 07/07/22905 Modafinil (Modafinil) 200 Mg Tablet, 300 MG PO DAILY, (Reported) Entered as Reported by: LUCILLE HANEY on 07/07/22905 Multivitamin with Minerals (Multiple Vitamin) 1 Each Tablet, 1 EACH PO DAILY, (Reported) Entered as Reported by: LUCILLE HANEY on 07/07/22905 Olanzapine (Olanzapine) 5 Mg Tablet, 5 MG PO BID, (Reported) Entered as Reported by: LUCILLE HANEY on 07/07/22905 Pantoprazole Sodium (Pantoprazole Sodium) 40 Mg Tablet.dr, 40 MG PO DAILY, (Reported) Entered as Reported by: LUCILLE HANEY on 07/07/22905 Propranolol HCl (Propranolol HCl) 10 Mg Tablet, 10 MG PO TID, (Reported) Entered as Reported by: LUCILLE HANEY on 07/07/22905 Simvastatin (Simvastatin) 10 Mg Tablet, 10 MG PO DAILY, (Reported) Entered as Reported by: LUCILLE HANEY on 07/07/22905 Vitamin D (Vitamin D3) 10 Mcg (400 Unit) Tablet, 400 MCG PO DAILY, (Reported) Entered as Reported by: LUCILLE HANEY on 07/07/22905 Review of Systems Review of Systems Constitutional: see HPI; No chills, No fever EENTM: no symptoms reported Respiratory: No cough, No short of breath Cardiovascular: No chest pain, No edema Gastrointestinal: No nausea, No vomiting Genitourinary: no symptoms reported Musculoskeletal: no symptoms reported Skin: no symptoms reported Past Xzwugtd-Dcsptc-Mqvzwl Hx Patient Social History Tobacco Use?: No Smoking Status: Never a Smoker Smokeless Tobacco Frequency: Never a User Use of E-Cig and/or Vaping dev: No Use of E-Cig and/or Vaping Crispin: Never a User Substance use?: No Alcohol Use?: No Pt feels they are or have been: No Immunizations Up To Date First/Initial COVID19 Vaccinat: YES Second COVID19 Vaccination Ranyd: YES Third COVID19 Vaccination Date: YES Seasonal Allergies Seasonal Allergies: No Past Medical History Surgeries: Yes (GASTRIC BYPASS) Section Respiratory: Yes Sleep Apnea Currently Using CPAP: Yes Cardiac: Yes Hypertension Neurological: No Genitourinary: No Gastrointestinal: No Musculoskeletal: No Endocrine: Yes Diabetes, Non-Insulin dep HEENT: No Cancer: No Psychosocial: No Integumentary: No Family Medical History Reviewed Nursing Family Hx Heart Disease, Hypertension Physical Exam Vital Signs Vital Signs - First Documented 06/09/23 06/09/23 15:53 19:35 Temp 36.2 Pulse 74 Resp 20 B/P (MAP) 212/112 (145) Pulse Ox 98 O2 Delivery Room Air Capillary Refill : Less Than 3 Seconds Height, Weight, BMI Height: '" Weight: lbs. oz. kg; 39.00 BMI Method:Stated General Appearance: No Apparent Distress, WD/WN, Obese HEENT: PERRL/EOMI, Pharynx Normal Neck: Non Tender, Supple Respiratory: Lungs Clear, Normal Breath Sounds Cardiovascular: Regular Rate, Rhythm, No Murmur Gastrointestinal: Non Tender, Soft Extremity: Normal Range of Motion, Non Tender Neurologic/Psychiatric: Alert, Oriented x3 Skin: Normal Color, Warm/Dry Progress/Results/Core Measures Suspected Sepsis SIRS Temperature: Pulse: 74 Respiratory Rate: 20 Laboratory Tests 06/09/23 15:56: White Blood Count 11.5H Blood Pressure 212 /112 Mean: 145 Laboratory Tests 06/09/23 15:56: Creatinine 0.81, Platelet Count 362, Total Bilirubin 0.7 Results/Orders Lab Results Laboratory Tests Test 06/09/23 15:56 Range/Units White Blood Count 11.5 H 4.3-11.0 10^3/uL Red Blood Count 4.94 3.80-5.11 10^6/uL Hemoglobin 14.0 11.5-16.0 g/dL Hematocrit 42 35-52 % Mean Corpuscular Volume 85 80-99 fL Mean Corpuscular Hemoglobin 28 25-34 pg Mean Corpuscular Hemoglobin Concent 33 32-36 g/dL Red Cell Distribution Width 13.9 10.0-14.5 % Platelet Count 362 130-400 10^3/uL Mean Platelet Volume 10.2 9.0-12.2 fL Immature Granulocyte % (Auto) 0 % Neutrophils (%) (Auto) 56 42-75 % Lymphocytes (%) (Auto) 31 12-44 % Monocytes (%) (Auto) 10 0-12 % Eosinophils (%) (Auto) 1 0-10 % Basophils (%) (Auto) 1 0-10 % Neutrophils # (Auto) 6.5 1.8-7.8 10^3/uL Lymphocytes # (Auto) 3.6 1.0-4.0 10^3/uL Monocytes # (Auto) 1.2 H 0.0-1.0 10^3/uL Eosinophils # (Auto) 0.1 0.0-0.3 10^3/uL Basophils # (Auto) 0.1 0.0-0.1 10^3/uL Immature Granulocyte # (Auto) 0.0 0.0-0.1 10^3/uL Sodium Level 127 L 135-145 MMOL/L Potassium Level 3.9 3.6-5.0 MMOL/L Chloride Level 94 L 98-107 MMOL/L Carbon Dioxide Level 20 L 21-32 MMOL/L Anion Gap 13 5-14 MMOL/L Blood Urea Nitrogen 6 L 7-18 MG/DL Creatinine 0.81 0.60-1.30 MG/DL Estimat Glomerular Filtration Rate 86 BUN/Creatinine Ratio 7 Glucose Level 126 H 70-105 MG/DL Calcium Level 9.4 8.5-10.1 MG/DL Corrected Calcium 9.1 8.5-10.1 MG/DL Total Bilirubin 0.7 0.1-1.0 MG/DL Aspartate Amino Transf (AST/SGOT) 24 5-34 U/L Alanine Aminotransferase (ALT/SGPT) 21 0-55 U/L Alkaline Phosphatase 114 40-136 U/L Troponin I < 0.028 <0.028 NG/ML Total Protein 7.7 6.4-8.2 GM/DL Albumin 4.4 3.2-4.5 GM/DL My Orders Orders - SHIRA GUPTA MD Cbc And Automated Diff (06/09/23 15:59) Comprehensive Metabolic Panel (06/09/23 15:59) Troponin I Shaan (06/09/23 15:59) Ekg Tracing (06/09/23 15:59) Clonidine Tablet (Clonidine Tablet) (06/09/23 16:00) Amlodipine Tablet (Amlodipine Tablet) (06/09/23 16:00) Ns Iv 500 Ml (Ns Iv 500 Ml) (06/09/23 17:00) Hydralazine Injection (Hydralazine Injec (06/09/23 17:00) Ns (Ivpb) 250 Ml (S... W/Nicardipine Inj (06/09/23 18:15) Code/Resuscitation (06/09/23 18:03) Ed Admission (Communication) (06/09/23 18:03) Chest 1 View, Ap/Pa Only (06/09/23 18:11) Medications Given in ED Vital Signs/I&O 06/09/23 06/09/23 06/09/23 06/09/23 15:53 18:36 19:00 19:35 Temp 36.2 36.7 Pulse 74 90 100 Resp 20 16 B/P (MAP) 212/112 (145) 181/99 151/66 Pulse Ox 98 O2 Delivery Room Air Room Air 06/10/23 00:00 Intake Total 500 ml Balance 500 ml Capillary Refill : Less Than 3 Seconds Blood Pressure Mean: 145 Progress Note : Progress Note Seen and evaluated. IV, labs including CBC, CMP and troponin ordered. EKG ordered. clonidine 0.1 mg p.o. and add amlodipine 10 mg p.o. ordered. Monitor patient. Differential diagnosis includes uncontrolled hypertension, electrolyte abnormality, cardiac event 1630: I have attempted to speak with Dr. Zhou and have left message for her to return call. We we will see if her blood pressure improves with the medication dosing and we will continue this outpatient with further adjustments per PCP as needed. Monitor patient. 1730: Labs reviewed and CBC shows slight elevated white count of 11.5 with otherwise normal findings. CMP reviewed and shows sodium of 127 with chloride of 94 with normal creatinine and slightly elevated blood sugar at 126 with normal LFTs. Troponin is negative. 1800: We added hydralazine to her medication due to persistent hypertension and I did give normal saline 500 mL bolus for decreased sodium and chloride. I did discuss the case with Dr. Goff and she accepts patient for admission to the ICU, observation status and we will put her on nicardipine drip. I will call report to [facility]. 1815: Report to eICU physician by me. Being start of Cardene drip. Blood pressure currently 192/100 and heart rate 72 and patient without distress. Chest x-ray done and reviewed by me shows no obvious infiltrate on my interpretation. Patient agrees to admission. ECG Initial ECG Impression Date: Jun 09, 2023 Initial ECG Impression Time: 16:02 Initial ECG Rate: 59 Initial ECG Rhythm: S.Delfin Comment Sinus bradycardia with incomplete right bundle branch block and normal axis. No evidence of ST elevation [place]. Interpreted by me. Does have findings concerning for LVH. Departure Communication (Admissions) Time/Spoke to Admitting Phy: 18:00 Time/Spoke to Consulting Phy: 18:12 Impression Primary Impression: Malignant hypertension Disposition: ADMITTED INPATIENT Condition: Stable Admissions Decision to Admit Reason: Admit from ER (General) Decision to Admit/Date: Jun 09, 2023 Time/Decision to Admit Time: 18:00 Departure-Patient Inst. Referrals: CHARLES ZHOU DO (PCP/Family) Primary Care Physician SHIRA GUPTA MD Jun 09, 2023 16:31
[2023-06-09] MEDS ORDERED: NS IV 500 ML 500 ML IV ONE (17:00)
[2023-06-09] MEDS ORDERED: hydrALAZINE INJECTION 20 MG/ML VIAL IV ONE (17:00)
[2023-06-09] MEDS ORDERED: niCARdipine INJECTION 50 MG in NS (IVPB) 250 ML 230 ML IV SCH (18:15)
--- NOTE | 2023-06-09 18:32 | Diagnostic Imaging Report ---
INDICATION: Hypertension. FINDINGS: The heart size, mediastinal configuration, and pulmonary vascularity are within normal limits. There is no pleural effusion, pneumothorax, or pneumonia. The osseous structures are unremarkable. IMPRESSION: No acute cardiopulmonary abnormality. Dictated by: Dictated on workstation # [id number]
[2023-06-09] MEDS ORDERED: CALCIUM CARBONATE 500 MG CHEW TABLET PO PRN (20:15)
[2023-06-09] MEDS ORDERED: MELATONIN 3 MG TABLET PO PRN (20:15)
[2023-06-09] MEDS ORDERED: diphenhydrAMINE INJ 50 MG/ML VIAL IVP PRN (20:15)
[2023-06-09] MEDS ORDERED: BISACODYL 10 MG SUPPOSITORY PR PRN (20:15)
[2023-06-09] MEDS ORDERED: diphenhydrAMINE 25 MG TABLET PO PRN (20:15)
[2023-06-09] MEDS ORDERED: ACETAMINOPHEN 325 MG TABLET PO PRN (20:15)
[2023-06-09] MEDS ORDERED: MILK OF MAGNESIA 400 MG/5 ML 30 ML UDC PO PRN (20:15)
[2023-06-09] MEDS ORDERED: ANTACID SUSPENSION 30 ML UDC PO PRN (20:15)
[2023-06-09] MEDS ORDERED: ONDANSETRON INJECTION 4 MG/2 ML (SDV) IV PRN (20:15)
[2023-06-09] MEDS ORDERED: ONDANSETRON 4 MG ORAL DISSOLVE TABLET PO PRN (20:15)
[2023-06-09] MEDS ORDERED: LACTULOSE SYRUP 10GM/15ML 30ML UDC PO PRN (20:15)
[2023-06-09] MEDS ORDERED: NS IV 500 ML 500 ML IV PRN (20:15)
[2023-06-09] MEDS ORDERED: HYDROmorphone INJECTION 2 MG/ML VIAL IV PRN (20:15)
[2023-06-09 20:26] VITALS: BP 212/112
--- NOTE | 2023-06-09 20:35 | Tele-ICU Progress Note ---
Progress Note 52F with HTN referred from PCP for BP elevation despite doubling home BP Rx last week. On presentation found to be 212/112. Started on cardene gtt with goal 150- 180. - hypertensive urgency: continue cardene gtt overnight. Transition to orals in AM as tolerated. Maintain 150-180 overnight and then normalize in AM. Given abrupt worsening of BP, will check US for possible SHYLA. - metabolic acidosis, mild with CO2 20 and gap 13. No renal failure present. Has received NS 500 cc for Na 127. Will repeat BMP and get VBG at 6 hours. If acidosis not resolved, will send urine electrolytes. CCT 8 min Focused Exam Height, Weight, BMI Height: '" Weight: lbs. oz. kg; 39.46 BMI Method:Stated HAWK BLANKENSHIP MD Jun 09, 2023 20:35
[2023-06-09] MEDS: niCARdipine INJECTION 50 MG in NS (IVPB) 250 ML 230 ML IV SCH (20:52)
[2023-06-09] MEDS ORDERED: oxyCODONE IMMEDIATE RELEASE 5 MG TABLET ONE (20:53)
[2023-06-09] MEDS: oxyCODONE IMMEDIATE RELEASE 5 MG TABLET PO PRN (20:55)
[2023-06-09] MEDS: SENNOSIDES 8.6 MG TABLET PO SCH (20:56)
[2023-06-09] MEDS: DOCUSATE SODIUM 100 MG CAPSULE PO SCH (20:56)
[2023-06-09] MEDS ORDERED: ALPRAZolam 0.5 MG TABLET PO PRN (21:45)
[2023-06-09 22:21] LABS: CREATININE SERUM 0.84 MG/DL (0.60-1.30); POTASSIUM 4.1 MMOL/L (3.6-5.0)
[2023-06-10] MEDS ORDERED: NS (IVPB) 250 ML 250 ML ONE (03:29)
[2023-06-10] MEDS ORDERED: niCARdipine IV PYXIS DRIP KIT = 50 MG X 2 VIALS ONE (03:29)
[2023-06-10] MEDS: niCARdipine INJECTION 50 MG in NS (IVPB) 250 ML 230 ML IV SCH ×2 (03:39→15:56)
[2023-06-10 04:56] LABS: BASOPHILS # (AUTO) 0.1 10^3/uL (0.0-0.1); BASOPHILS % (AUTO) 0 % (0-10); EOSINOPHILS % (AUTO) 0 % (0-10); HEMATOCRIT 42 % (35-52); HEMOGLOBIN 14.4 g/dL (11.5-16.0); LYMPHOCYTES # (AUTO) 0.9 10^3/uL (1.0-4.0); LYMPHOCYTES % (AUTO) 7 % (12-44); MEAN CORPUSCULAR HEMOGLOBIN 28 pg (25-34); MEAN CORPUSCULAR HGB CONC 34 g/dL (32-36); MEAN CORPUSCULAR VOLUME 83 fL (80-99); MEAN PLATELET VOLUME 9.9 fL (9.0-12.2); MONOCYTES # (AUTO) 0.4 10^3/uL (0.0-1.0); MONOCYTES % (AUTO) 4 % (0-12); NEUTROPHILS % (AUTO) 89 % (42-75); PLATELET COUNT 309 10^3/uL (130-400); WHITE BLOOD COUNT 12.5 10^3/uL (4.3-11.0)
[2023-06-10 05:15] LABS: ALBUMIN 4.4 GM/DL (3.2-4.5); BILIRUBIN,TOTAL 0.7 MG/DL (0.1-1.0); CALCIUM 9.1 MG/DL (8.5-10.1); CREATININE SERUM 0.81 MG/DL (0.60-1.30); MAGNESIUM 1.7 MG/DL (1.6-2.4); PHOSPHORUS 3.5 MG/DL (2.3-4.7); POTASSIUM 4.1 MMOL/L (3.6-5.0); TOTAL PROTEIN 7.3 GM/DL (6.4-8.2)
[2023-06-10 05:36] LABS: NEUTROPHILS % (MANUAL) 88 %
[2023-06-10 05:37] LABS: LYMPHOCYTES % (MANUAL) 9 %; MONOCYTES % (MANUAL) 3 %; RBC MORPH NORMAL
[2023-06-10] MEDS: inSUlin ASPART 1 UNIT/0.01 ML (PER UNIT) SC SCH ×2 (05:40→11:45)
[2023-06-10] MEDS: MAGNESIUM 1 GM/100 ML IVPB 100 ML IV SCH ×2 (05:40→07:38)
[2023-06-10] MEDS ORDERED: MAGNESIUM 1 GM/100 ML IVPB 100 ML IV SCH (06:00)
[2023-06-10] MEDS ORDERED: POTASSIUM CHLORIDE 20 MEQ TABLET PO SCH (06:00)
[2023-06-10] MEDS ORDERED: POTASSIUM CL 10MEQ/50ML IVPB 50 ML IV SCH (06:00)
[2023-06-10] MEDS: oxyCODONE IMMEDIATE RELEASE 5 MG TABLET PO PRN ×2 (06:51→14:07)
[2023-06-10] MEDS ORDERED: cloNIDine 0.1 MG TABLET PO ONE (08:30)
--- NOTE | 2023-06-10 09:07 | Tele-ICU Progress Note ---
Subjective Date Seen by a Provider: Jun 10, 2023 Subjective/Events-last exam This virtual visit was conducted using real time audio/video. Thank you for asking us to see this patient for critical care services due to initial malignant hypertension, now new onset chest tightness since 4 AM and troponin elevation. No S-T elevation on EKG per RN. PE: Obese. VSS. 167/90. O2 sat 98% on RA HEENT: No obvious masses, adenopathy or JVD. Chest: clear to auscultation. CV: RRR S1 S2 No murmur or added sounds. Abd: Non-tender. Bowel sounds Y. : Unremarkable. [place] N. SANITARIAN INSPECTOR/psychiatric: Grossly intact. No obvious focal findings. Extremities: No edema. Capillary refill < 3 seconds. Skin: unremarkable. Results: Elevated Trop 0.036, BG 273, WCC 12.5. Decreased Na 129. CXR: clear. Available chart/ vitals / labs / images reviewed. Video assessment done using teleICU camera, rest of exam as per RN. A/P: Critical Care: Repeat Troponin pending. Would consider cardiology consult, possible cardiac cath. Critically ill patient. Cont. Cardene, Mag., Patria., SSI. Discussed with RN Lanette. Asked RN to reach out to eICU if any questions or c oncerns later. Time spent with patient/coordination of care with other health professionals (mins): 25 Sepsis Event Evaluation Height, Weight, BMI Height: '" Weight: lbs. oz. kg; 38.29 BMI Method:Stated Exam Exam Patient acknowledged, consented, and participated in this virtual visit which was conducted using real time audio/video Vital Signs Date Time Temp Pulse Resp B/P (MAP) Pulse Ox O2 Delivery O2 Flow Rate FiO2 06/10/23 08:39 35.5 06/10/23 08:00 114 10 164/90 (114) 98 Room Air 06/10/23 07:00 98 14 157/92 (112) 95 Room Air 06/10/23 07:00 105 06/10/23 06:00 112 26 154/98 (116) 94 Room Air 06/10/23 05:00 106 23 152/90 (110) 94 Room Air 06/10/23 04:21 167/96 06/10/23 04:00 109 21 167/96 (119) 95 06/10/23 03:40 94 Room Air 06/10/23 03:39 158/89 06/10/23 03:30 36.6 98 20 158/89 (112) 94 Room Air 06/10/23 01:00 101 25 160/88 (112) 98 Room Air 06/10/23 01:00 100 06/09/23 23:35 100 Room Air 06/09/23 23:33 161/102 06/09/23 23:30 36.4 110 18 161/102 (121) 100 Room Air 06/09/23 23:00 92 19 149/94 (112) 98 Room Air 06/09/23 22:08 139/84 06/09/23 22:00 97 20 139/84 (102) 100 Room Air 06/09/23 21:45 97 21 136/84 (101) 95 Room Air 06/09/23 21:15 94 21 145/86 (105) 95 Room Air 06/09/23 20:45 112 28 166/107 (126) 100 Room Air 06/09/23 20:34 100 Room Air 0.00 21 06/09/23 20:30 146/94 (111) 06/09/23 20:26 36.2 74 100 21 06/09/23 20:15 148/89 (108) 06/09/23 20:15 148/89 06/09/23 20:15 100 Room Air 06/09/23 19:54 37.3 103 22 165/94 (117) 100 Room Air 06/09/23 19:48 169/96 06/09/23 19:35 36.7 100 16 151/66 98 Room Air 06/09/23 19:00 90 06/09/23 18:36 181/99 06/09/23 15:53 36.2 74 20 212/112 (145) Room Air I & O 06/10/23 07:00 Intake Total 1600 ml Output Total 4550 ml Balance -2950 ml Height & Weight Height: '" Weight: lbs. oz. kg; 38.29 BMI Method:Stated General Appearance: No Apparent Distress, WD/WN, Obese HEENT: PERRL/EOMI, Pharynx Normal Neck: Non Tender, Supple Respiratory: Lungs Clear, Normal Breath Sounds Cardiovascular: Regular Rate, Rhythm, No Murmur Capillary Refill: Less Than 3 Seconds Extremity: Normal Range of Motion, Non Tender Neurologic/Psychiatric: Alert, Oriented x3 Skin: Normal Color, Warm/Dry Results Lab Laboratory Tests 06/09/23 15:56 06/09/23 21:55 06/10/23 04:46 Assessment/Plan Assessment/Plan See free text. Critical Care: Critically Ill Patient ANTHONY BORDEN MD Jun 10, 2023 09:07
[2023-06-10] MEDS: amLODIPine 5 MG TABLET PO SCH ×2 (09:17→09:18)
[2023-06-10] MEDS: DOCUSATE SODIUM 100 MG CAPSULE PO SCH (09:18)
[2023-06-10] MEDS: SENNOSIDES 8.6 MG TABLET PO SCH (09:18)
--- NOTE | 2023-06-10 10:23 | Diagnostic Imaging Report ---
PROCEDURE: US Renal/Bladder. TECHNIQUE: Multiple real-time grayscale images were obtained over the kidneys in various projections bilaterally. INDICATION: Hypertensive emergency. COMPARISON: None. FINDINGS: Right: The right kidney measures 11.4 cm in length. Renal cortical thickness and echogenicity are within normal limits. There is no evidence of calculi, solid focal mass or hydronephrosis. No perinephric fluid collections are identified. Resistive indices within the arcuate arteries on the right measure 0.56. Left: The left kidney measures 10.7 cm in length. Renal cortical thickness and echogenicity are within normal limits. There is no evidence of calculi, solid focal mass or hydronephrosis. No perinephric fluid collections are identified. Resistive indices within the arcuate arteries on the left measure 0.61. There is no abdominal ascites. The aorta and renal arteries is not visualized due to extensive bowel gas. IMPRESSION: 1. Nondiagnostic renal artery Doppler due to extensive bowel gas obscuring the aorta and bilateral renal arteries. 2. No acute renal abnormalities identified. Dictated by: Dictated on workstation # [id number]
[2023-06-10] MEDS ORDERED: CARI3CAP PO (10:46)
[2023-06-10] MEDS ORDERED: L.AC1CAP6 PO (10:46)
[2023-06-10] MEDS ORDERED: MV-M1TAB57 PO (10:46)
[2023-06-10] MEDS ORDERED: TIZA-186 PO ×2 (10:46)
[2023-06-10] MEDS ORDERED: HYDR-700 PO (10:46)
[2023-06-10] MEDS ORDERED: FERR325T24 PO (10:46)
[2023-06-10] MEDS ORDERED: LOSA50TA63 PO (10:46)
[2023-06-10] MEDS ORDERED: DULA0.75 SQ (10:46)
[2023-06-10] MEDS ORDERED: CALC-903 PO (10:46)
[2023-06-10] MEDS ORDERED: CHOL500050 PO (10:46)
--- NOTE | 2023-06-10 11:28 | Short Stay Summary ---
RAMONLIN 06/10/23 1128: History of Present Illness History of Present Illness Reason for visit/HPI 52 year old patient with hypertension presented yesterday for elevated blood pressure with headaches. Her blood pressure was found to be over 190/110. Patient reports that her PCP double her BP medication last week- however- it has not helped. She was found to have a BP of 212/112 yesterday. Patient is a [facility] patient. She has a history of hypertension, recently had an ECHO performed at [facility], and was told she had a murmur there. Patient today denies fever or chills. She is tachycardic and feels chest pain- described as someone pressing on her chest. Repeat EKG was unremarkable. Troponin slightly elevated to .036. Patient reports taking her medications regularly and not missing any. Date of Admission Jun 09, 2023 at 19:38 Date of Discharge Attending Physician Sharmaine Zhou DO Admitting Physician Admitting Physician: Nancy Worrell DO Attending Physician: Nancy Worrell DO Consult Allergies and Home Medications Allergies Coded Allergies: NSAIDS (Non-Steroidal Anti-Inflamma (Verified Allergy, Unknown, 06/09/23) Patient Home Medication List Calcium Carbonate/Vitamin D3 (Calcium 600 + Vit D3 Caplet) 600 Mg Calcium-20 Mcg (800 Unit) Tablet, 1 EACH PO 1300,2100, (Reported) Entered as Reported by: AUSTIN JARRETT on 06/10/231045 Last Action: Reviewed Cariprazine Hydrochloride (Vraylar) 3 Mg Capsule, 3 MG PO DAILY, (Reported) Entered as Reported by: AUSTIN JARRETT on 06/10/23 104 Last Action: Reviewed Cholecalciferol (Vitamin D3) (Vitamin D3) 125 Mcg (5000 Unit) Capsule, 250 MCG PO, (Reported) Entered as Reported by: AUSTIN JARRETT on 06/10/231045 Last Action: Reviewed Dulaglutide (Trulicity) 0.75 Mg/0.5 Ml Pen.injctr, 0.75 MG SQ FRI, (Reported) Entered as Reported by: AUSTIN JARRETT on 06/10/231045 Last Action: Reviewed Duloxetine HCl (Duloxetine HCl) 60 Mg Capsule.dr, 60 MG PO DAILY, (Reported) Entered as Reported by: LUCILLE HANEY on 11/9/22 0906 Last Action: Reviewed Ferrous Sulfate (Ferosul) 325 Mg (65 Mg Iron) Tablet, 325 MG PO MO,WE,FR, (Reported) Entered as Reported by: AUSTIN JARRETT on 06/10/231045 Last Action: Reviewed Hydroxyzine HCl (Hydroxyzine HCl) 25 Mg Tablet, 25 MG PO TID PRN for ANXIETY, (Reported) Entered as Reported by: AUSTIN JARRETT on 06/10/231045 Last Action: Reviewed L.acidoph & Paracasei,B.lactis (Probiotic) 10 Billion Cell Capsule, 1 EACH PO HS, (Reported) Entered as Reported by: AUSTIN JARRETT on 06/10/231045 Last Action: Reviewed Losartan Potassium (Losartan Potassium) 50 Mg Tablet, 100 MG PO DAILY, (Reported) Entered as Reported by: AUSTIN JARRETT on 06/10/231045 Last Action: Reviewed Mv-Mn/Folic Acid/Calcium/Vit K (Women's 50 Plus Multivit Tab) 400 Mcg-500 Mg Calcium-20 Mcg Tablet, 1 EACH PO DAILY, (Reported) Entered as Reported by: AUSTIN JARRETT on 06/10/231045 Last Action: Reviewed Pantoprazole Sodium (Pantoprazole Sodium) 40 Mg Tablet.dr, 40 MG PO HS, (Rep orted) Entered as Reported by: LUCILLE HANEY on 07/07/22905 Last Action: Reviewed Propranolol HCl (Propranolol HCl) 10 Mg Tablet, 20 MG PO TID PRN for TREMORS, (Reported) Entered as Reported by: LUCILLE HANEY on 07/07/22905 Last Action: Reviewed Tizanidine HCl (Tizanidine HCl) 4 Mg Tablet, 8 MG PO HS, (Reported) Entered as Reported by: AUSTIN JARRETT on 06/10/231045 Last Action: Reviewed Tizanidine HCl (Tizanidine HCl) 4 Mg Tablet, 2 MG PO 0800,1200 PRN for MUSCLE SPASMS, (Reported) Entered as Reported by: AUSTIN JARRETT on 06/10/231045 Last Action: Continued Discontinued Medications Bacillus Coagulans (Probiotic) 250 Million Cell Tab.chew, 1 EACH PO DAILY, (Reported) Discontinued Reason: No Longer Taking Entered as Reported by: LUCILLE HANEY on 07/07/22905 Last Action: Discontinued Buspirone HCl (Buspirone HCl) 30 Mg Tablet, 30 MG PO BID, (Reported) Discontinued Reason: No Longer Taking Entered as Reported by: LUCILLE HANEY on 07/07/22905 Last Action: Discontinued Calcium Carbonate (Calcium) 600 Mg Calcium (1500 Mg) Tablet, 600 MG PO DAILY, (Reported) Discontinued Reason: No Longer Taking Entered as Reported by: LUCILLE HANEY on 07/07/22905 Last Action: Discontinued Dulaglutide (Trulicity) 3 Mg/0.5 Ml Pen.injctr, 3 MG SQ WEEK, (Reported) Discontinued Reason: No Longer Taking Entered as Reported by: LUCILLE HANEY on 07/07/22905 Last Action: Discontinued Ferrous Sulfate (Iron) 325 ( 65 )Mg Capsule.sa, 1 PO DAILY, (Reported) Discontinued Reason: No Longer Taking Entered as Reported by: FRANKIE MENDEZ on 11/20/10 1448 Last Action: Discontinued Gabapentin (Gabapentin) 400 Mg Capsule, 300 MG PO TID, (Reported) Discontinued Reason: No Longer Taking Entered as Reported by: LUCILLE HANEY on 07/07/22905 Last Action: Discontinued Lisinopril (Lisinopril) 10 Mg Tablet, 10 MG PO DAILY, (Reported) Discontinued Reason: No Longer Taking Entered as Reported by: LUCILLE HANEY on 07/07/22905 Last Action: Discontinued Modafinil (Modafinil) 200 Mg Tablet, 300 MG PO DAILY, (Reported) Discontinued Reason: No Longer Taking Entered as Reported by: LUCILLE HANEY on 07/07/22905 Last Action: Discontinued Multivitamin with Minerals (Multiple Vitamin) 1 Each Tablet, 1 EACH PO DAILY, (Reported) Discontinued Reason: Prescription changed Entered as Reported by: LUCILLE HANEY on 07/07/22905 Olanzapine (Olanzapine) 5 Mg Tablet, 5 MG PO BID, (Reported) Discontinued Reason: No Longer Taking Entered as Reported by: LUCILLE HANEY on 07/07/22905 Last Action: Discontinued Simvastatin (Simvastatin) 10 Mg Tablet, 10 MG PO DAILY, (Reported) Discontinued Reason: No Longer Taking Entered as Reported by: LUCILLE HANEY on 07/07/22905 Last Action: Discontinued Vitamin D (Vitamin D3) 10 Mcg (400 Unit) Tablet, 400 MCG PO DAILY, (Reported) Discontinued Reason: No Longer Taking Entered as Reported by: LUCILLE HANEY on 07/07/22905 Last Action: Discontinued Past Qbpnuyx-Jrzakc-Rzjcis Hx Patient Social History Marrital Status: Smoking Status: Never a Smoker 2nd Hand Smoke Exposure: No Recent Hopitalizations: No Alcohol Use?: No Pt feels they are or have been: No Immunizations Up To Date Date of Pneumonia Vaccine: Apr 29, 2009 Date of Influenza Vaccine: May 30, 2023 Seasonal Allergies Seasonal Allergies: No Surgeries Yes (GASTRIC BYPASS) Section Respiratory Yes Currently Using CPAP: Yes Cardiovascular Yes Hypertension Neurological No Genitourinary No Gastrointestinal No Musculoskeletal No Endocrine History of Endocrine Disorders: Yes Endocrine Disorders: Diabetes, Non-Insulin dep HEENT History of HEENT Disorders: No Cancer No Psychosocial History of Psychiatric Problem: No Integumentary History of Skin or Integumenta: No Family Medical History Significant Family History: Heart Disease, Hypertension Review of Systems Constitutional: No chills, No fever EENTM: No blurred vision, No double vision Respiratory: No cough, No hemoptysis Cardiovascular: chest pain Gastrointestinal: No RUQ, No LUQ, No RLQ, No LLQ Skin: No change in color, No change in hair/nails Psychiatric/Neurological: Anxiety (pt is anxious) Physical Exam Vital Signs Vital Signs - First Documented 06/09/23 06/09/23 06/09/23 06/09/23 15:53 19:35 20:26 20:34 Temp 36.2 Pulse 74 Resp 20 B/P (MAP) 212/112 (145) Pulse Ox 98 O2 Delivery Room Air O2 Flow Rate 0.00 FiO2 21 Capillary Refill : Less Than 3 Seconds Height, Weight, BMI Height: '" Weight: lbs. oz. kg; 38.29 BMI Method:Stated General Appearance: WD/WN, Mild Distress HEENT: Normal ENT Inspection Neck: Full Range of Motion, Normal Inspection Respiratory: Normal Breath Sounds, No Accessory Muscle Use Cardiovascular: No JVD, Tachycardia Gastrointestinal: Normal Bowel Sounds, No Pulsatile Mass Extremity: Normal Range of Motion, Non Tender Neurologic/Psychiatric: Alert, Oriented x3, No Motor/Sensory Deficits Skin: Normal Color, Warm/Dry Short Stay Diagnosis Discharge Diagnosis-Short Stay Final Discharge Diagnosis: Malignant hypertension GERD Conclusion Labs Laboratory Tests 06/09/23 15:56: White Blood Count 11.5H, Red Blood Count 4.94, Hemoglobin 14.0, Hematocrit 42, Mean Corpuscular Volume 85, Mean Corpuscular Hemoglobin 28, Mean Corpuscular Hemoglobin Concent 33, Red Cell Distribution Width 13.9, Platelet Count 362, Mean Platelet Volume 10.2, Immature Granulocyte % (Auto) 0, Neutrophils (%) (Auto) 56, Lymphocytes (%) (Auto) 31, Monocytes (%) (Auto) 10, Eosinophils (%) (Auto) 1, Basophils (%) (Auto) 1, Neutrophils # (Auto) 6.5, Lymphocytes # (Auto) 3.6, Monocytes # (Auto) 1.2H, Eosinophils # (Auto) 0.1, Basophils # (Auto) 0.1, Immature Granulocyte # (Auto) 0.0, Sodium Level 127L, Potassium Level 3.9, Chloride Level 94L, Carbon Dioxide Level 20L, Anion Gap 13, Blood Urea Nitrogen 6L, Creatinine 0.81, Estimat Glomerular Filtration Rate 86, BUN/Creatinine Ratio 7, Glucose Level 126H, Calcium Level 9.4, Corrected Calcium 9.1, Total Bilirubin 0.7, Aspartate Amino Transf (AST/SGOT) 24, Alanine Aminotransferase (ALT/SGPT) 21, Alkaline Phosphatase 114, Troponin I < 0.028, Total Protein 7.7, Albumin 4.4 06/09/23 21:55: Sodium Level 137, Potassium Level 4.1, Chloride Level 101, Carbon Dioxide Level 23, Anion Gap 13, Blood Urea Nitrogen 5L, Creatinine 0.84, Estimat Glomerular Filtration Rate 83, BUN/Creatinine Ratio 6, Glucose Level 167H, Calcium Level 9.0, Venous Blood pH 7.40, Venous Blood Partial Pressure CO2 45, Venous Blood HCO3 27 06/10/23 04:46: White Blood Count 12.5H, Red Blood Count 5.13H, Hemoglobin 14.4, Hematocrit 42, Mean Corpuscular Volume 83, Mean Corpuscular Hemoglobin 28, Mean Corpuscular Hemoglobin Concent 34, Red Cell Distribution Width 13.9, Platelet Count 309, Mean Platelet Volume 9.9, Immature Granulocyte % (Auto) 0, Neutrophils (%) (Auto) 89H, Lymphocytes (%) (Auto) 7L, Monocytes (%) (Auto) 4, Eosinophils (%) (Auto) 0, Basophils (%) (Auto) 0, Neutrophils # (Auto) 11.0H, Lymphocytes # (Auto) 0.9L, Monocytes # (Auto) 0.4, Eosinophils # (Auto) 0.0, Basophils # (Auto) 0.1, Immature Granulocyte # (Auto) 0.0, Sodium Level 129L, Potassium Level 4.1, Chloride Level 96L, Carbon Dioxide Level 21, Anion Gap 12, Blood Urea Nitrogen 5L, Creatinine 0.81, Estimat Glomerular Filtration Rate 86, BUN/Creatinine Ratio 6, Glucose Level 273H, Calcium Level 9.1, Corrected Calcium 8.8, Total Bilirubin 0.7, Aspartate Amino Transf (AST/SGOT) 18, Alanine Aminotransferase (ALT/SGPT) 21, Alkaline Phosphatase 115, Troponin I 0.036H, Total Protein 7.3, Albumin 4.4, Neutrophils % (Manual) 88, Lymphocytes % (Manual) 9, Monocytes % (Manual) 3, Blood Morphology Comment NORMAL, Phosphorus Level 3.5, Magnesium Level 1.7, Thyroid Stimulating Hormone (TSH) 1.04 06/10/23 08:39: Troponin I 0.042H, B-Type Natriuretic Peptide 42.6 06/10/23 10:28: Troponin I 0.031H Conclusion/Plan Transfer patient to [facility] NANCY WORRELL DO 06/11/23 0637: History of Present Illness History of Present Illness Reason for visit/HPI CC: HTN urgency HPI: This is a 52yoWF clinic patient of Dr Zhou who presented to the ER with malignant HTN requiring Cardene drip. Currently she is still not "feeling right" and chest pressure has begun and troponin was slightly elevated. ECHO reviewed from [facility] and the decision was made to transfer to [facility] for higher level of care. Date of Admission 06/10/23 Date of Discharge 06/10/23 Time Seen by Provider: 11:00 Allergies and Home Medications Allergies Coded Allergies: NSAIDS (Non-Steroidal Anti-Inflamma (Verified Allergy, Unknown, 06/09/23) Patient Home Medication List Home Medication List Reviewed: Yes Calcium Carbonate/Vitamin D3 (Calcium 600 + Vit D3 Caplet) 600 Mg Calcium-20 Mcg (800 Unit) Tablet, 1 EACH PO 1300,2100, (Reported) Entered as Reported by: AUSTIN JARRETT on 06/10/23 1046 Last Action: Reviewed Cariprazine Hydrochloride (Vraylar) 3 Mg Capsule, 3 MG PO DAILY, (Reported) Entered as Reported by: AUSTIN JARRETT on 06/10/231045 Last Action: Reviewed Cholecalciferol (Vitamin D3) (Vitamin D3) 125 Mcg (5000 Unit) Capsule, 250 MCG PO, (Reported) Entered as Reported by: AUSTIN JARRETT on 06/10/231045 Last Action: Reviewed Dulaglutide (Trulicity) 0.75 Mg/0.5 Ml Pen.injctr, 0.75 MG SQ FRI, (Reported) Entered as Reported by: AUSTIN JARRETT on 06/10/231045 Last Action: Reviewed Duloxetine HCl (Duloxetine HCl) 60 Mg Capsule.dr, 60 MG PO DAILY, (Reported) Entered as Reported by: LUCILLE HANEY on 07/07/22905 Last Action: Reviewed Ferrous Sulfate (Ferosul) 325 Mg (65 Mg Iron) Tablet, 325 MG PO MO,WE,FR, (Reported) Entered as Reported by: AUSTIN JARRETT on 06/10/231045 Last Action: Reviewed Hydroxyzine HCl (Hydroxyzine HCl) 25 Mg Tablet, 25 MG PO TID PRN for ANXIETY, (Reported) Entered as Reported by: AUSTIN JARRETT on 06/10/231045 Last Action: Reviewed L.acidoph & Paracasei,B.lactis (Probiotic) 10 Billion Cell Capsule, 1 EACH PO HS, (Reported) Entered as Reported by: AUSTIN JARERTT on 06/10/231045 Last Action: Reviewed Losartan Potassium (Losartan Potassium) 50 Mg Tablet, 100 MG PO DAILY, (R eported) Entered as Reported by: AUSTIN JARRETT on 06/10/231045 Last Action: Reviewed Mv-Mn/Folic Acid/Calcium/Vit K (Women's 50 Plus Multivit Tab) 400 Mcg-500 Mg Calcium-20 Mcg Tablet, 1 EACH PO DAILY, (Reported) Entered as Reported by: AUSTIN JARRETT on 06/10/231045 Last Action: Reviewed Pantoprazole Sodium (Pantoprazole Sodium) 40 Mg Tablet.dr, 40 MG PO HS, (Reported) Entered as Reported by: LUCILLE HANEY on 07/07/22905 Last Action: Reviewed Propranolol HCl (Propranolol HCl) 10 Mg Tablet, 20 MG PO TID PRN for TREMORS, (Reported) Entered as Reported by: LUCILLE HANEY on 07/07/22905 Last Action: Reviewed Tizanidine HCl (Tizanidine HCl) 4 Mg Tablet, 8 MG PO HS, (Reported) Entered as Reported by: AUSTIN JARRETT on 06/10/23 104 Last Action: Reviewed Tizanidine HCl (Tizanidine HCl) 4 Mg Tablet, 2 MG PO 0800,1200 PRN for MUSCLE SPASMS, (Reported) Entered as Reported by: AUSTIN JARRETT on 06/10/231045 Last Action: Continued Discontinued Medications Bacillus Coagulans (Probiotic) 250 Million Cell Tab.chew, 1 EACH PO DAILY, (Reported) Discontinued Reason: No Longer Taking Entered as Reported by: LUCILLE HANEY on 07/07/22905 Last Action: Discontinued Buspirone HCl (Buspirone HCl) 30 Mg Tablet, 30 MG PO BID, (Reported) Discontinued Reason: No Longer Taking Entered as Reported by: LUCILLE HANEY on 07/07/22905 Last Action: Discontinued Calcium Carbonate (Calcium) 600 Mg Calcium (1500 Mg) Tablet, 600 MG PO DAILY, (Reported) Discontinued Reason: No Longer Taking Entered as Reported by: LUCILLE HANEY on 07/07/22905 Last Action: Discontinued Dulaglutide (Trulicity) 3 Mg/0.5 Ml Pen.injctr, 3 MG SQ WEEK, (Reported) Discontinued Reason: No Longer Taking Entered as Reported by: LUCILLE HANEY on 07/07/22905 Last Action: Discontinued Ferrous Sulfate (Iron) 325 ( 65 )Mg Capsule.sa, 1 PO DAILY, (Reported) Discontinued Reason: No Longer Taking Entered as Reported by: FRANKIE MENDEZ on 11/20/10 1448 Last Action: Discontinued Gabapentin (Gabapentin) 400 Mg Capsule, 300 MG PO TID, (Reported) Discontinued Reason: No Longer Taking Entered as Reported by: LUCILLE HANEY on 07/07/22905 Last Action: Discontinued Lisinopril (Lisinopril) 10 Mg Tablet, 10 MG PO DAILY, (Reported) Discontinued Reason: No Longer Taking Entered as Reported by: LUCILLE HANEY on 07/07/22905 Last Action: Discontinued Modafinil (Modafinil) 200 Mg Tablet, 300 MG PO DAILY, (Reported) Discontinued Reason: No Longer Taking Entered as Reported by: LUCILLE HANEY on 07/07/22905 Last Action: Discontinued Multivitamin with Minerals (Multiple Vitamin) 1 Each Tablet, 1 EACH PO DAILY, (Reported) Discontinued Reason: Prescription changed Entered as Reported by: LUCILLE HANEY on 07/07/22905 Olanzapine (Olanzapine) 5 Mg Tablet, 5 MG PO BID, (Reported) Discontinued Reason: No Longer Taking Entered as Reported by: LUCILLE HANEY on 07/07/22905 Last Action: Discontinued Simvastatin (Simvastatin) 10 Mg Tablet, 10 MG PO DAILY, (Reported) Discontinued Reason: No Longer Taking Entered as Reported by: LUCILLE HANEY on 07/07/22905 Last Action: Discontinued Vitamin D (Vitamin D3) 10 Mcg (400 Unit) Tablet, 400 MCG PO DAILY, (Reported) Discontinued Reason: No Longer Taking Entered as Reported by: LUCILLE HANEY on 07/07/22905 Last Action: Discontinued Past Ajtsuqx-Gsimfb-Chnppg Hx Patient Social History Marrital Status: single Employed/Student: unemployed Smoking Status: Never a Smoker Cardiovascular High Cholesterol, Hypertension Review of Systems Constitutional: see HPI Physical Exam General Appearance: No Apparent Distress, WD/WN, Chronically ill Respiratory: Lungs Clear Cardiovascular: Regular Rate, Rhythm Short Stay Diagnosis Discharge Diagnosis-Short Stay Admission Diagnosis: HTN urgency Final Discharge Diagnosis: HTN urgency Elevated troponin Chest pain DM Conclusion Conclusion/Plan [facility] transfer Supervisory-Addendum Brief Verification & Attestation Participated in pt care: history, MDM, physical Personally performed: exam, history, MDM, supervision of care Care discussed with: Medical Student Procedures: n/a Results interpretation: Verified all documentation Verification and Attestation of Medical Student E/M Service A medical student performed and documented this service in my presence. I rev iewed and verified all information documented by the medical student and made modifications to such information, when appropriate. I personally performed the physical exam and medical decision making. Nancy Worrell, Jun 11, 2023,06:37 LIN RAMON Jun 10, 2023 11:28 NANCY WORRELL DO Jun 11, 2023 06:37
--- NOTE | 2023-06-10 13:50 | Short Stay Summary ---
Discharge Summary Hospital Course Problems/Dx: (1) Hypertensive urgency (2) Uncontrolled hypertension (3) T2DM (type 2 diabetes mellitus) (4) Chest pressure Final Diagnosis: Hypertensive urgency Hospital Course Date of Admission: Jun 09, 2023 at 19:38 Admission Diagnosis : Family Physician/Provider: Sharmaine Zhou DO Date of Discharge: 06/10/23 Discharge Diagnosis: Hypertensive urgency Hospital Course: 52 year old patient with hypertension presented yesterday for elevated blood pressure with headaches. Her blood pressure was found to be over 190/110. She was started on a Cardene drip. She has a history of hypertension, recently had an ECHO performed at [facility], and was told she had a murmur there. Patient today denies fever or chills. She is tachycardic and feels chest pain- described as someone pressing on her chest. Repeat EKG was unremarkable. Troponin trended up 0.038-->0.042. Patient reports taking her medications regularly and not missing any. Pt transferred to [facility] for further cardiac management. Labs and Pending Lab Test: Laboratory Tests 06/09/23 15:56: White Blood Count 11.5H, Red Blood Count 4.94, Hemoglobin 14.0, Hematocrit 42, Mean Corpuscular Volume 85, Mean Corpuscular Hemoglobin 28, Mean Corpuscular Hemoglobin Concent 33, Red Cell Distribution Width 13.9, Platelet Count 362, Mean Platelet Volume 10.2, Immature Granulocyte % (Auto) 0, Neutrophils (%) (Auto) 56, Lymphocytes (%) (Auto) 31, Monocytes (%) (Auto) 10, Eosinophils (%) (Auto) 1, Basophils (%) (Auto) 1, Neutrophils # (Auto) 6.5, Lymphocytes # (Auto) 3.6, Monocytes # (Auto) 1.2H, Eosinophils # (Auto) 0.1, Basophils # (Auto) 0.1, Immature Granulocyte # (Auto) 0.0, Sodium Level 127L, Potassium Level 3.9, Chloride Level 94L, Carbon Dioxide Level 20L, Anion Gap 13, Blood Urea Nitrogen 6L, Creatinine 0.81, Estimat Glomerular Filtration Rate 86, BUN/Creatinine Ratio 7, Glucose Level 126H, Mean Blood Glucose [Pending], Hemoglobin A1c [Pending], Calcium Level 9.4, Corrected Calcium 9.1, Total Bilirubin 0.7, Aspartate Amino Transf (AST/SGOT) 24, Alanine Aminotransferase (ALT/SGPT) 21, Alkaline Phosphatase 114, Troponin I < 0.028, Total Protein 7.7, Albumin 4.4 06/09/23 21:55: Sodium Level 137, Potassium Level 4.1, Chloride Level 101, Carbon Dioxide Level 23, Anion Gap 13, Blood Urea Nitrogen 5L, Creatinine 0.84, Estimat Glomerular Filtration Rate 83, BUN/Creatinine Ratio 6, Glucose Level 167H, Calcium Level 9.0, Venous Blood pH 7.40, Venous Blood Partial Pressure CO2 45, Venous Blood HCO3 27 06/10/23 04:46: White Blood Count 12.5H, Red Blood Count 5.13H, Hemoglobin 14.4, Hematocrit 42, Mean Corpuscular Volume 83, Mean Corpuscular Hemoglobin 28, Mean Corpuscular Hemoglobin Concent 34, Red Cell Distribution Width 13.9, Platelet Count 309, Mean Platelet Volume 9.9, Immature Granulocyte % (Auto) 0, Neutrophils (%) (Auto) 89H, Lymphocytes (%) (Auto) 7L, Monocytes (%) (Auto) 4, Eosinophils (%) (Auto) 0, Basophils (%) (Auto) 0, Neutrophils # (Auto) 11.0H, Lymphocytes # (Auto) 0.9L, Monocytes # (Auto) 0.4, Eosinophils # (Auto) 0.0, Basophils # (Auto) 0.1, Immature Granulocyte # (Auto) 0.0, Sodium Level 129L, Potassium Level 4.1, Chloride Level 96L, Carbon Dioxide Level 21, Anion Gap 12, Blood Urea Nitrogen 5L, Creatinine 0.81, Estimat Glomerular Filtration Rate 86, BUN/Creatinine Ratio 6, Glucose Level 273H, Calcium Level 9.1, Corrected Calcium 8.8, Total Bilirubin 0.7, Aspartate Amino Transf (AST/SGOT) 18, Alanine Aminotransferase (ALT/SGPT) 21, Alkaline Phosphatase 115, Troponin I 0.036H, Total Protein 7.3, Albumin 4.4, Neutrophils % (Manual) 88, Lymphocytes % (Manual) 9, Monocytes % (Manual) 3, Blood Morphology Comment NORMAL, Phosphorus Level 3.5, Magnesium Level 1.7, Thyroid Stimulating Hormone (TSH) 1.04 06/10/23 08:39: Troponin I 0.042H, B-Type Natriuretic Peptide 42.6 06/10/23 10:28: Troponin I 0.031H 06/10/23 11:42: Glucometer 233H Home Meds Active Reported Vitamin D3 (Cholecalciferol (Vitamin D3)) 125 Mcg (5000 Unit) Capsule 250 Mcg PO TAKES 2 (125MCG) CAPS Probiotic (L.acidoph & Paracasei,B.lactis) 10 Billion Cell Capsule 1 Each PO HS Calcium 600 + Vit D3 Caplet (Calcium Carbonate/Vitamin D3) 600 Mg Calcium-20 Mcg (800 Unit) Tablet 1 Each PO 1300,2100 Trulicity (Dulaglutide) 0.75 Mg/0.5 Ml Pen.injctr 0.75 Mg SQ FRI Ferosul (Ferrous Sulfate) 325 Mg (65 Mg Iron) Tablet 325 Mg PO MO,WE,FR Vraylar (Cariprazine Hydrochloride) 3 Mg Capsule 3 Mg PO DAILY Hydroxyzine HCl 25 Mg Tablet 25 Mg PO TID PRN Losartan Potassium 50 Mg Tablet 100 Mg PO DAILY TAKES 2 (50MG) TABS Tizanidine HCl 4 Mg Tablet 2 Mg PO 0800,1200 PRN TAKES OF A 4MG TAB Tizanidine HCl 4 Mg Tablet 8 Mg PO HS TAKES 2 (4MG) TABS Women's 50 Plus Multivit Tab (Mv-Mn/Folic Acid/Calcium/Vit K) 400 Mcg-500 Mg Calcium-20 Mcg Tablet 1 Each PO DAILY Pantoprazole Sodium 40 Mg Tablet.dr 40 Mg PO HS Propranolol HCl 10 Mg Tablet 20 Mg PO TID PRN TAKES 2 (10MG) TABS Duloxetine HCl 60 Mg Capsule.dr 60 Mg PO DAILY Assessment/Pt Instructions Due to elevation in troponin levels, acute onset chest pressure, headache and unavailability of advanced cardiac care, Pt was transferred to [facility] for further cardiac management. Discharge Instructions Discharge Diet: No Restrictions Activity as Tolerated: Yes Discharge Physical Examination General Appearance: Alert, Oriented X3, Mild Distress HEENT: Atraumatic Cardiovascular: Regular Rate Abdominal: Normal Bowel Sounds, Soft Neuro: Normal Speech Allergies: Coded Allergies: NSAIDS (Non-Steroidal Anti-Inflamma (Verified Allergy, Unknown, 06/09/23) Discharge Summary Date of Admission Jun 09, 2023 at 19:38 Date of Discharge Discharge Date: Jun 10, 2023 PATEL OLIVA MD,RESIDENT Jun 10, 2023 13:50
[2023-06-10 15:56] VITALS: BP 158/88
[2023-06-10] MEDS ORDERED: ENOXAPARIN 40 MG/0.4 ML SYRINGE SC SCH (21:00)
== END 2023-06-10 13:07 | disposition short-term general hospital (02) ==
LOC: EDUNIT# 15:45 → ER 15:47 → UNDOADMOB 19:38 → ICU 19:38 → UNDODISOB 06-10 13:07
PROVIDERS: ADMIT Internal Medicine; ATTEND Internal Medicine
DX: I16.0 Hypertensive urgency (principal); I10 Essential (primary) hypertension; E11.9 Type 2 diabetes mellitus without complications; R07.89 Other chest pain; K21.9 Gastro-esophageal reflux disease without esophagitis; R77.8 Other specified abnormalities of plasma proteins; E87.20 Acidosis, unspecified; Z79.899 Other long term (current) drug therapy
CPT/HCPCS: 36415; 71045; 76770; 80048; 80053; 82805; 82947; 83036; 83735; 83880; 84100; 84443; 84484; 85007; 85025; 85027; 87081; 93005; 96361; 96365; 96366; 96375; 96376; G0378

== ENCOUNTER 2023-06-12 21:14 | Emergency (ER) | payer MEDICARE, MEDICAID ==
[~2023-06-12] VITALS: Ht 170.1 cm; Wt 113.8 kg
[~2023-06-12 21:14] MED LIST changes: +CALC-903 PO; +CARI3CAP PO; +CHOL500050 PO; +DULA0.75 SQ; +FERR325T24 PO; +HYDR-700 PO; +L.AC1CAP6 PO; +LOSA50TA63 PO; +MV-M1TAB57 PO; +TIZA-186 PO
--- NOTE | 2023-06-12 22:19 | ED General ---
General Chief Complaint: Psych/Social Disorder Stated Complaint: HALLUCINATIONS/SLURRED SPEECH Nursing Triage Note: PT AMB, WITH NO DIFFICULITY, TO RM 5 WITH CC OF HALLUCINATIONS SINCE THIS PM. PT STATES DC FROM [facility] THIS AFTERNOON. PT STATES HAS BEEN SEEING LITTLE KIDS HIDING BEHIND DOORS, PEOPLE WALKING IN THE STREET THAT ARE NOT THERE, AND ARMS AND LEGS COMING FROM THE GROUND. PT BELIEVES THAT SHE COULD HAVE BEEN HALLUCINATING PRIOR TO DC FROM [facility] BUT IS UNSURE. PT REPORTS DAUGHTER AND SISTER BELIEVE HER SPEECH IS SLURRED. 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 PT DENIES ARM NUMBNESS/TINGLING AND WEAKNESS. PT IS ABLE TO MOVE ALL 4 EXTREMITIES. Source of Information: Patient, Family Exam Limitations: No Limitations History of Present Illness Date Seen by Provider: Jun 12, 2023 Time Seen by Provider: 21:48 Initial Comments Patient is a 52-year-old female who presents to the emergency room with a chief complaint of "hallucinating" since discharge from [facility] earlier in the day. She was recently in the hospital from to today for what sounds like hypertensive emergency. She had a stress test today at [facility] and was discharged afterwards. She reports no changes to her daily medications. She did have intermittent periods of n.p.o. status while at [facility]. She complains of significantly dry mouth. Her hallucinations consist of seeing people, mostly children over the course of the afternoon. No auditory hallucinations are present. She has not had any complaints of new pain. She is not having nausea or vomiting. No headache. No unilateral numbness weakness or tingling. She has scheduled follow-up appointments with her primary care physician. He is presently alert, oriented, appropriately conversant. She states she has been constipated over the last 4 days. No bowel movement since . She normally has 1 daily. She does endorse depressive symptoms and what sounds like chronic SI. SHe has a special needs adult daughter and has no current plans for suicide but states she has previously developed a plan and has means. She does have a therapist. Timing/Duration: 12 Hours Severity: Moderate Associated Systoms: Denies Symptoms Allergies and Home Medications Allergies Coded Allergies: NSAIDS (Non-Steroidal Anti-Inflamma (Verified Allergy, Unknown, 06/09/23) Patient Home Medication List Home Medication List Reviewed: Yes Calcium Carbonate/Vitamin D3 (Calcium 600 + Vit D3 Caplet) 600 Mg Calcium-20 Mcg (800 Unit) Tablet, 1 EACH PO 1300,2100, (Reported) Entered as Reported by: AUSTIN JARRETT on 06/10/23 104 Cariprazine Hydrochloride (Vraylar) 3 Mg Capsule, 3 MG PO DAILY, (Reported) Entered as Reported by: AUSTIN JARRETT on 06/10/231045 Cholecalciferol (Vitamin D3) (Vitamin D3) 125 Mcg (5000 Unit) Capsule, 250 MCG PO, (Reported) Entered as Reported by: AUSTIN JARRETT on 06/10/23 104 Dulaglutide (Trulicity) 0.75 Mg/0.5 Ml Pen.injctr, 0.75 MG SQ FRI, (Reported) Entered as Reported by: AUSTIN JARRETT on 06/10/231045 Duloxetine HCl (Duloxetine HCl) 60 Mg Capsule.dr, 60 MG PO DAILY, (Reported) Entered as Reported by: LUCILLE HANEY on 07/07/22905 Ferrous Sulfate (Ferosul) 325 Mg (65 Mg Iron) Tablet, 325 MG PO MO,WE,FR, (Reported) Entered as Reported by: AUSTIN JARRETT on 06/10/231045 Hydroxyzine HCl (Hydroxyzine HCl) 25 Mg Tablet, 25 MG PO TID PRN for ANXIETY, (Reported) Entered as Reported by: AUSTIN JARRETT on 06/10/231045 L.acidoph & Paracasei,B.lactis (Probiotic) 10 Billion Cell Capsule, 1 EACH PO HS, (Reported) Entered as Reported by: AUSTIN JARRETT on 06/10/231045 Losartan Potassium (Losartan Potassium) 50 Mg Tablet, 100 MG PO DAILY, (Reported) Entered as Reported by: AUSTIN JARRETT on 06/10/231045 Mv-Mn/Folic Acid/Calcium/Vit K (Women's 50 Plus Multivit Tab) 400 Mcg-500 Mg Calcium-20 Mcg Tablet, 1 EACH PO DAILY, (Reported) Entered as Reported by: AUSTIN JARRETT on 06/10/231045 Pantoprazole Sodium (Pantoprazole Sodium) 40 Mg Tablet.dr, 40 MG PO HS, (Reported) Entered as Reported by: LUCILLE HANEY on 07/07/22 09 Propranolol HCl (Propranolol HCl) 10 Mg Tablet, 20 MG PO TID PRN for TREMORS, (Reported) Entered as Reported by: LUCILLE HANEY on 07/07/22905 Tizanidine HCl (Tizanidine HCl) 4 Mg Tablet, 8 MG PO HS, (Reported) Entered as Reported by: AUSTIN JARRETT on 06/10/23 1046 Tizanidine HCl (Tizanidine HCl) 4 Mg Tablet, 2 MG PO 0800,1200 PRN for MUSCLE SPASMS, (Reported) Entered as Reported by: AUSTIN JARRETT on 06/10/23 1046 Discontinued Medications Bacillus Coagulans (Probiotic) 250 Million Cell Tab.chew, 1 EACH PO DAILY, (Reported) Discontinued Reason: No Longer Taking Entered as Reported by: LUCILLE HANEY on 07/07/22905 Buspirone HCl (Buspirone HCl) 30 Mg Tablet, 30 MG PO BID, (Reported) Discontinued Reason: No Longer Taking Entered as Reported by: LUCILLE HANEY on 07/07/22905 Calcium Carbonate (Calcium) 600 Mg Calcium (1500 Mg) Tablet, 600 MG PO DAILY, (Reported) Discontinued Reason: No Longer Taking Entered as Reported by: LUCILLE HANEY on 07/07/22905 Dulaglutide (Trulicity) 3 Mg/0.5 Ml Pen.injctr, 3 MG SQ WEEK, (Reported) Discontinued Reason: No Longer Taking Entered as Reported by: LUCILLE HANEY on 07/07/22905 Ferrous Sulfate (Iron) 325 ( 65 )Mg Capsule.sa, 1 PO DAILY, (Reported) Discontinued Reason: No Longer Taking Entered as Reported by: FRANKIE MENDEZ on 11/20/10 1448 Gabapentin (Gabapentin) 400 Mg Capsule, 300 MG PO TID, (Reported) Discontinued Reason: No Longer Taking Entered as Reported by: LUCILLE HANEY on 07/07/22905 Lisinopril (Lisinopril) 10 Mg Tablet, 10 MG PO DAILY, (Reported) Discontinued Reason: No Longer Taking Entered as Reported by: LUCILLE HANEY on 07/07/22905 Modafinil (Modafinil) 200 Mg Tablet, 300 MG PO DAILY, (Reported) Discontinued Reason: No Longer Taking Entered as Reported by: LUCILLE HANEY on 07/07/22905 Multivitamin with Minerals (Multiple Vitamin) 1 Each Tablet, 1 EACH PO DAILY, (Reported) Discontinued Reason: Prescription changed Entered as Reported by: LUCILLE HANEY on 07/07/22905 Olanzapine (Olanzapine) 5 Mg Tablet, 5 MG PO BID, (Reported) Discontinued Reason: No Longer Taking Entered as Reported by: LUCILLE HANEY on 07/07/22905 Simvastatin (Simvastatin) 10 Mg Tablet, 10 MG PO DAILY, (Reported) Discontinued Reason: No Longer Taking Entered as Reported by: LUCILLE HANEY on 07/07/22905 Vitamin D (Vitamin D3) 10 Mcg (400 Unit) Tablet, 400 MCG PO DAILY, (Reported) Discontinued Reason: No Longer Taking Entered as Reported by: LUCILLE HANEY on 07/07/22905 Review of Systems Review of Systems Constitutional: see HPI EENTM: no symptoms reported Respiratory: no symptoms reported Cardiovascular: no symptoms reported Gastrointestinal: constipation Genitourinary: no symptoms reported Musculoskeletal: no symptoms reported Skin: no symptoms reported Psychiatric/Neurological: Denies Headache, Denies Numbness, Denies Paresthesia; Other (visual hallucinations) All Other Systems Reviewed Negative Unless Noted: Yes Past Cakbfss-Dxqdfo-Xgpkhy Hx Patient Social History Tobacco Use?: No Substance use?: No Alcohol Use?: No Immunizations Up To Date First/Initial COVID19 Vaccinat: YES Second COVID19 Vaccination Randy: YES Third COVID19 Vaccination Date: YES Seasonal Allergies Seasonal Allergies: No Past Medical History Surgery/Hospitalization HX: CARDIAC Surgeries: Yes (GASTRIC BYPASS) Section Respiratory: Yes Sleep Apnea Currently Using CPAP: Yes Cardiac: Yes High Cholesterol, Hypertension Neurological: No Genitourinary: No Gastrointestinal: No Musculoskeletal: No Endocrine: Yes Diabetes, Non-Insulin dep HEENT: No Cancer: No Psychosocial: No Integumentary: No Family Medical History Heart Disease, Hypertension Physical Exam Vital Signs Vital Signs - First Documented 06/12/23 21:34 Temp 36.8 Pulse 74 Resp 16 B/P (MAP) 140/96 (111) Pulse Ox 94 O2 Delivery Room Air Capillary Refill : Less Than 3 Seconds Height, Weight, BMI Height: '" Weight: lbs. oz. 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 as 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, Other (no current hallucinations) Skin: Normal Color, Warm/Dry Progress/Results/Core Measures Suspected Sepsis SIRS Temperature: Pulse: 74 Respiratory Rate: 16 Laboratory Tests 06/12/23 21:54: White Blood Count 9.3 Blood Pressure 140 /96 Mean: 111 Laboratory Tests 06/12/23 21:54: Platelet Count 311 06/12/23 22:25: Creatinine 0.96, Total Bilirubin 0.4 Results/Orders Lab Results Laboratory Tests Test 06/12/23 21:54 06/12/23 22:25 06/12/23 23:45 Range/Units White Blood Count 9.3 4.3-11.0 10^3/uL Red Blood Count 4.49 3.80-5.11 10^6/uL Hemoglobin 12.6 11.5-16.0 g/dL Hematocrit 39 35-52 % Mean Corpuscular Volume 86 80-99 fL Mean Corpuscular Hemoglobin 28 25-34 pg Mean Corpuscular Hemoglobin Concent 33 32-36 g/dL Red Cell Distribution Width 14.4 10.0-14.5 % Platelet Count 311 130-400 10^3/uL Mean Platelet Volume 10.2 9.0-12.2 fL Immature Granulocyte % (Auto) 0 % Neutrophils (%) (Auto) 54 42-75 % Lymphocytes (%) (Auto) 33 12-44 % Monocytes (%) (Auto) 11 0-12 % Eosinophils (%) (Auto) 1 0-10 % Basophils (%) (Auto) 1 0-10 % Neutrophils # (Auto) 5.0 1.8-7.8 10^3/uL Lymphocytes # (Auto) 3.0 1.0-4.0 10^3/uL Monocytes # (Auto) 1.1 H 0.0-1.0 10^3/uL Eosinophils # (Auto) 0.1 0.0-0.3 10^3/uL Basophils # (Auto) 0.1 0.0-0.1 10^3/uL Immature Granulocyte # (Auto) 0.0 0.0-0.1 10^3/uL Sodium Level 131 L 135-145 MMOL/L Potassium Level 4.1 3.6-5.0 MMOL/L Chloride Level 99 98-107 MMOL/L Carbon Dioxide Level 22 21-32 MMOL/L Anion Gap 10 5-14 MMOL/L Blood Urea Nitrogen 13 7-18 MG/DL Creatinine 0.96 0.60-1.30 MG/DL Estimat Glomerular Filtration Rate 70 BUN/Creatinine Ratio 14 Glucose Level 159 H 70-105 MG/DL Calcium Level 8.7 8.5-10.1 MG/DL Corrected Calcium 9.1 8.5-10.1 MG/DL Total Bilirubin 0.4 0.1-1.0 MG/DL Aspartate Amino Transf (AST/SGOT) 22 5-34 U/L Alanine Aminotransferase (ALT/SGPT) 18 0-55 U/L Alkaline Phosphatase 90 40-136 U/L Ammonia 21 11-32 UMOL/L Total Protein 6.0 L 6.4-8.2 GM/DL Albumin 3.5 3.2-4.5 GM/DL Urine Color YELLOW Urine Clarity CLEAR Urine pH 6.0 5-9 Urine Specific [place] 1.020 1.016-1.022 Urine Protein 1+ H NEGATIVE Urine Glucose (UA) NEGATIVE NEGATIVE Urine Ketones TRACE H NEGATIVE Urine Nitrite NEGATIVE NEGATIVE Urine Bilirubin NEGATIVE NEGATIVE Urine Urobilinogen 1.0 < = 1.0 MG/DL Urine Leukocyte Esterase 1+ H NEGATIVE Urine RBC (Auto) NEGATIVE NEGATIVE Urine RBC NONE /HPF Urine WBC 0-2 /HPF Urine Squamous Epithelial Cells 0-2 /HPF Urine Crystals NONE /LPF Urine Bacteria NEGATIVE /HPF Urine Casts PRESENT /LPF Urine Hyaline Casts 0-2 H /LPF Urine Mucus SMALL H /LPF Urine Culture Indicated NO My Orders Orders - ANTONIA ARMSTRONG MD Ed Iv/Invasive Line Start (06/12/23 22:18) Cbc And Automated Diff (06/12/23 22:18) Comprehensive Metabolic Panel (06/12/23 22:18) Ammonia (06/12/23 22:18) Ua Culture If Indicated (06/12/23 22:18) Ns Iv 1000 Ml (Ns Iv 1000 Ml) (06/12/23 23:15) Vital Signs/I&O 10/15/23 21:34 Temp 36.8 Pulse 74 Resp 16 B/P (MAP) 140/96 (111) Pulse Ox 94 O2 Delivery Room Air Capillary Refill : Less Than 3 Seconds Blood Pressure Mean: 111 Progress Note : Time: 00:27 Departure Impression Primary Impression: Visual hallucinations Additional Impression: Constipation Qualified Codes: K59.00 - Constipation, unspecified Disposition: 01 HOME, SELF-CARE Condition: Stable Departure-Patient Inst. Decision time for Depature: 00:55 Referrals: CHARLES HOLT DO (PCP/Family) Primary Care Physician Patient Instructions: Constipation, Adult ED Add. Discharge Instructions: Drink lots of fluids to stay well-hydrated, electrolyte replacement, Pedialyte, this will also help to soften your stool to relieve constipation. I would recommend MiraLAX twice a day for the next 3 days to help get stool moving. Hopefully this will improve the hallucinations. If after successful bowel movement you are having continuous hallucinations or any increased thoughts of self-harm or auditory hallucinations please return to the emergency room for reevaluation. Please do touch base with your therapist tomorrow. This is very important. Return to the emergency department for any new, concerning or emergent complaints. Copy Copies To 1: CHARLES HOLT KATHRYN M MD Jun 12, 2023 22:19
[2023-06-12 22:25] LABS: BASOPHILS # (AUTO) 0.1 10^3/uL (0.0-0.1); BASOPHILS % (AUTO) 1 % (0-10); EOSINOPHILS # (AUTO) 0.1 10^3/uL (0.0-0.3); EOSINOPHILS % (AUTO) 1 % (0-10); HEMATOCRIT 39 % (35-52); HEMOGLOBIN 12.6 g/dL (11.5-16.0); LYMPHOCYTES % (AUTO) 33 % (12-44); MEAN CORPUSCULAR HEMOGLOBIN 28 pg (25-34); MEAN CORPUSCULAR HGB CONC 33 g/dL (32-36); MEAN CORPUSCULAR VOLUME 86 fL (80-99); MEAN PLATELET VOLUME 10.2 fL (9.0-12.2); MONOCYTES # (AUTO) 1.1 10^3/uL (0.0-1.0); MONOCYTES % (AUTO) 11 % (0-12); NEUTROPHILS % (AUTO) 54 % (42-75); PLATELET COUNT 311 10^3/uL (130-400); WHITE BLOOD COUNT 9.3 10^3/uL (4.3-11.0)
[2023-06-12 22:47] LABS: ALBUMIN 3.5 GM/DL (3.2-4.5); POTASSIUM 4.1 MMOL/L (3.6-5.0)
[2023-06-12 22:49] LABS: CALCIUM 8.7 MG/DL (8.5-10.1)
[2023-06-12 22:52] LABS: BILIRUBIN,TOTAL 0.4 MG/DL (0.1-1.0)
[2023-06-12 22:54] LABS: CREATININE SERUM 0.96 MG/DL (0.60-1.30)
[2023-06-12] MEDS ORDERED: NS IV 1000 ML 1,000 ML IV SCH (23:15)
[2023-06-13 00:28] LABS: CLARITY,URINE CLEAR; COLOR,URINE YELLOW
[2023-06-13 00:29] LABS: BACTERIA,URINE NEGATIVE /HPF; BILIRUBIN,URINE NEGATIVE (NEGATIVE); GLUCOSE, URINE (UA) NEGATIVE (NEGATIVE); KETONES,URINE TRACE (NEGATIVE); LEUKOCYTE ESTERASE ,URINE 1+ (NEGATIVE); NITRITE,URINE NEGATIVE (NEGATIVE); PROTEIN,URINE 1+ (NEGATIVE); SQUAMOUS EPITHELIAL CELL,UR 0-2 /HPF; WBC,URINE 0-2 /HPF
[2023-06-13 00:30] LABS: HYALINE CASTS, URINE 0-2 /LPF
[2023-06-13 01:05] VITALS: BP 153/90
== END 2023-06-13 01:05 | disposition home or self-care (01) ==
LOC: EDUNIT# 21:14 → ER 21:16
DX: R44.1 Visual hallucinations (principal); G47.30 Sleep apnea, unspecified; K59.00 Constipation, unspecified; Z99.89 Dependence on other enabling machines and devices
CPT/HCPCS: 36415; 80053; 81000; 82140; 85025

== ENCOUNTER 2023-06-23 11:00 | Outpatient (RCR) | payer MEDICARE, MEDICAID | END 2023-06-28 | disposition home or self-care (01) | PROVIDERS: ATTEND Family Medicine | DX: G62.9 Polyneuropathy, unspecified (principal); R42 Dizziness and giddiness; R26.89 Other abnormalities of gait and mobility ==

== ENCOUNTER 2023-06-30 10:45 | Outpatient (RCR) | payer MEDICARE, MEDICAID | END 2023-06-30 11:54 | disposition home or self-care (01) | PROVIDERS: ATTEND Family Medicine | DX: G62.9 Polyneuropathy, unspecified (principal); R42 Dizziness and giddiness; R26.89 Other abnormalities of gait and mobility ==

== ENCOUNTER 2023-07-26 13:34 | Outpatient (RCR) | payer MEDICARE, MEDICAID | END 2023-07-28 | disposition home or self-care (01) | PROVIDERS: ATTEND Physician Assistant | DX: M54.16 Radiculopathy, lumbar region (principal); E11.9 Type 2 diabetes mellitus without complications; I10 Essential (primary) hypertension ==